=== PATIENT | male | born 1965 | race Caucasian/White ===

== ENCOUNTER → 2016-06-05 | Outpatient (CLI) | payer BC, MEDICARE ==
--- NOTE | 2016-06-05 16:04 | RAD ---
Thyroid sonography History: Hyperthyroidism. Findings: The longitudinal and AP and transverse dimensions of the right lobe are 5.1 cm and 1.9 cm and 1.8 cm respectively. The longitudinal and AP and transverse dimensions of the left lobe are 5.1 cm and 2.2 cm and 1.7 cm respectively. Both lobes are homogeneous without discrete mass or cyst. The isthmus is homogeneous measures 0.3 cm in thickness. IMPRESSION: Normal thyroid sonogram.
== END | disposition home or self-care (01) ==
LOC: US 12:52
PROVIDERS: ATTEND Family Medicine
DX: E05.90 Thyrotoxicosis, unspecified without thyrotoxic crisis or storm (principal)
CPT/HCPCS: 76536

== ENCOUNTER 2016-09-15 21:56 | Inpatient (IN) | payer BC, MEDICARE ==
[~2016-09-15] VITALS: Ht 180.3 cm; Wt 65.3 kg
[~2016-09-15 21:56] MED LIST: ALPR0.25 PO; ALPR1TAB2 PO; AMLO2.5T2 PO; GABA-586 PO; OMEP20CA9 PO; PANT40TA5 PO; VENL75CA PO; ZIPR40CA2 PO
[2016-09-15 22:48] LABS: BASO # 0.1 x10^3/uL (0.0-0.2); BASO % 1 % (0-3); EOS % 1 % (0-3); HEMATOCRIT 39.7 % (39.0-53.0); HEMOGLOBIN 13.7 g/dL (13.0-17.5); LYMPH # 2.8 x10^3/uL (1.0-4.8); LYMPH % 38 % (24-48); MEAN CORPUSCULAR HEMOGLOBIN 35 pg (25-35); MEAN CORPUSCULAR HGB CONC 34 g/dL (31-37); MEAN CORPUSCULAR VOLUME 101 fL (79-100); MONO % 11 % (0-9); NEUT % 51 % (31-73); PLATELET COUNT 208 x10^3/uL (140-400); RED BLOOD COUNT 3.94 x10^6/uL (4.30-5.70); WHITE BLOOD COUNT 7.4 x10^3/uL (4.0-11.0)
[2016-09-15 22:58] LABS: CALCIUM 9.3 mg/dL (8.5-10.1); CREATININE 0.6 mg/dL (0.7-1.3); GFR 140.9; POTASSIUM 3.8 mmol/L (3.5-5.1)
[2016-09-15 23:10] LABS: ALBUMIN 3.8 g/dL (3.4-5.0); ALBUMIN/GLOBULIN RATIO 1.2 (1.0-1.7); TOTAL BILIRUBIN 0.9 mg/dL (0.2-1.0)
[2016-09-15] MEDS ORDERED: ONDANSETRON PF 4 MG/2 ML VIAL. IV PRN (23:45)
[2016-09-15 23:52] LABS: BILIRUBIN,URINE NEGATIVE (NEG); GLUCOSE,URINE NEGATIVE (NEG); NITRITE,URINE NEGATIVE (NEG); PROTEIN,URINE NEGATIVE (NEG-TRACE); UROBILINOGEN,URINE 0.2 mg/dL (0.2 mg/dL)
[2016-09-15 23:56] LABS: BACTERIA,URINE 0 /HPF (0-FEW); RBC,URINE 0 /HPF (0-2); SQUAMOUS EPITHELIAL CELL,UR OCC /LPF; WBC,URINE 0 /HPF (0-4)
[2016-09-16] VITALS (7 sets, daily range): BP systolic 100–131; BP diastolic 61–88
[2016-09-16] MEDS ORDERED: IV NORMAL SALINE 1000ML BAG 1,000 ML IV ONE
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
[2016-09-16] MEDS ORDERED: ALPR0.25 PO (03:42)
[2016-09-16 04:33] LABS: CALCIUM 8.3 mg/dL (8.5-10.1); CREATININE 0.4 mg/dL (0.7-1.3); POTASSIUM 4.3 mmol/L (3.5-5.1)
--- NOTE | 2016-09-16 06:38 | EKG ---
[facility] [address] [place] [address] Test Date: 2016-09-15 Test Time: 22:32:20 Pat Name: KENISHA NICHOLS Department: Room: [facility] Gender: M [employer]: : 1965 Requested By: RYAN SHEEHAN Order Number: [id number] Reading MD: Papa Montero Measurements Intervals [place] Rate: 96 P: 90 VA: 136 QRS: 77 QRSD: 88 T: 58 QT: 328 QTc: 415 Interpretive Statements SINUS RHYTHM ATRIAL PREMATURE COMPLEX(ES) NO SPECIFIC ECG ABNORMALITIES RI6.01 No previous ECG available for comparison Electronically Signed On 09-18-2016 16:24:28 CDT by Papa Montero
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
[2016-09-16] MEDS ORDERED: NON FORMULARY ITEM (Omeprazole 1 CAP) PO SCH (09:00)
[2016-09-16] MEDS: PANTOPRAZOLE 40 MG TABLET.DR. PO SCH (09:53)
[2016-09-16] MEDS: VENLAFAXINE 50 MG TABLET. PO SCH ×3 (09:54→21:23)
[2016-09-16] MEDS: GABAPENTIN 300 MG CAPSULE. PO SCH ×3 (09:54→21:23)
[2016-09-16] MEDS: ZIPRASIDONE 20 MG CAPSULE PO SCH ×2 (09:54→21:23)
[2016-09-16] MEDS: NICOTINE 21MG PATCH. TD SCH (18:38)
[2016-09-16 20:36] LABS: BASO % 0 % (0-3); EOS % 1 % (0-3); HEMATOCRIT 39.7 % (39.0-53.0); HEMOGLOBIN 13.4 g/dL (13.0-17.5); LYMPH # 1.7 x10^3/uL (1.0-4.8); LYMPH % 30 % (24-48); MEAN CORPUSCULAR HEMOGLOBIN 34 pg (25-35); MEAN CORPUSCULAR HGB CONC 34 g/dL (31-37); MEAN CORPUSCULAR VOLUME 100 fL (79-100); MONO % 16 % (0-9); NEUT % 53 % (31-73); PLATELET COUNT 214 x10^3/uL (140-400); RED BLOOD COUNT 3.96 x10^6/uL (4.30-5.70); RED CELL DISTRIBUTION WIDTH 13.1 % (11.5-14.5); WHITE BLOOD COUNT 5.6 x10^3/uL (4.0-11.0)
[2016-09-16 20:56] LABS: ALBUMIN 3.5 g/dL (3.4-5.0); ALBUMIN/GLOBULIN RATIO 1.2 (1.0-1.7); CALCIUM 8.3 mg/dL (8.5-10.1); CREATININE 0.6 mg/dL (0.7-1.3); GFR 140.9; MAGNESIUM 2.2 mg/dL (1.8-2.4); TOTAL BILIRUBIN 0.4 mg/dL (0.2-1.0); TOTAL PROTEIN 6.5 g/dL (6.4-8.2)
[2016-09-16] MEDS: ALPRAZolam 0.25 MG TABLET PO SCH (21:24)
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
[2016-09-16 22:24] LABS: BILIRUBIN,URINE NEGATIVE (NEG); GLUCOSE,URINE NEGATIVE (NEG); NITRITE,URINE NEGATIVE (NEG); PH,URINE 7.5; PROTEIN,URINE NEGATIVE (NEG-TRACE); UROBILINOGEN,URINE 0.2 mg/dL (0.2 mg/dL)
[2016-09-16 22:31] LABS: BACTERIA,URINE 0 /HPF (0-FEW); RBC,URINE 0 /HPF (0-2); SQUAMOUS EPITHELIAL CELL,UR OCC /LPF; WBC,URINE 0 /HPF (0-4)
[2016-09-17] MEDS: ALPRAZolam 0.25 MG TABLET PO PRN ×2 (00:39→08:40)
[2016-09-17 03:53] VITALS: BP 120/78
[2016-09-17] MEDS ORDERED: SLEEP MED PO (04:30)
[2016-09-17] MEDS ORDERED: DIPH25CA58 PO (04:30)
[2016-09-17] MEDS ORDERED: ALPR1TAB2 PO (04:30)
[2016-09-17] MEDS ORDERED: RAME8TAB19 PO (04:30)
--- NOTE | 2016-09-17 05:57 | EKG ---
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
[2016-09-17 07:43] VITALS: BP 134/89
[2016-09-17] MEDS: VENLAFAXINE 50 MG TABLET. PO SCH ×3 (08:40→20:40)
[2016-09-17] MEDS: PANTOPRAZOLE 40 MG TABLET.DR. PO SCH (08:40)
[2016-09-17] MEDS: ZIPRASIDONE 20 MG CAPSULE PO SCH ×2 (08:40→20:40)
[2016-09-17] MEDS: NICOTINE 21MG PATCH. TD SCH (08:41)
[2016-09-17] MEDS: GABAPENTIN 300 MG CAPSULE. PO SCH ×3 (08:41→20:40)
[2016-09-17] MEDS ORDERED: ONDANSETRON PF 4 MG/2 ML VIAL. IV PRN (09:00)
[2016-09-17] MEDS ORDERED: ALPRAZolam 1 MG TABLET PO PRN (09:00)
[2016-09-17] MEDS ORDERED: LOPERAMIDE 2 MG CAPSULE PO PRN (09:00)
[2016-09-17] MEDS: AMINO AC 3%/ELECTROLYTE/GLYCER 1,000 ML IV SCH ×2 (10:37→22:38)
[2016-09-17 11:04] VITALS: BP 118/80
[2016-09-17] MEDS: ALPRAZolam 1 MG TABLET PO SCH ×4 (11:35→20:40)
[2016-09-17 15:10] VITALS: BP 121/66
[2016-09-17 16:16] LABS: HEP A IGM ABDY Negative (Negative); HEP A TOTAL ABDY Negative (Negative)
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
[2016-09-17 19:44] VITALS: BP 110/79
[2016-09-17] MEDS: ALPRAZolam 0.25 MG TABLET PO SCH (20:40)
[2016-09-17 23:24] VITALS: BP 120/82
[2016-09-18 03:37] VITALS: BP 110/79
[2016-09-18 07:55] VITALS: BP 131/82
[2016-09-18] MEDS: NICOTINE 21MG PATCH. TD SCH (08:23)
[2016-09-18] MEDS: VENLAFAXINE 50 MG TABLET. PO SCH ×2 (08:23→13:36)
[2016-09-18] MEDS: PANTOPRAZOLE 40 MG TABLET.DR. PO SCH (08:24)
[2016-09-18] MEDS: GABAPENTIN 300 MG CAPSULE. PO SCH ×2 (08:24→13:36)
[2016-09-18] MEDS: ZIPRASIDONE 20 MG CAPSULE PO SCH (08:24)
[2016-09-18] MEDS: ALPRAZolam 1 MG TABLET PO SCH ×2 (08:24→11:54)
[2016-09-18 10:58] VITALS: BP 109/75
[2016-09-18] MEDS: AMINO AC 3%/ELECTROLYTE/GLYCER 1,000 ML IV SCH (13:36)
[2016-09-18 14:50] VITALS: BP 96/65
[2016-09-18] MEDS ORDERED: LOPE2CAP PO (15:11)
[2016-09-18] MEDS ORDERED: Nicotine 21MG TD (15:11)
[2016-09-18] MEDS ORDERED: VENL150C6 PO (15:11)
--- NOTE | 2016-09-18 15:19 | PDOC ---
Provider Note Provider Note discharge dictated # [id number] Jt SHEEHAN MD Sep 18, 2016 15:19
--- NOTE | 2016-09-18 15:23 | PDOC3 ---
Discharge Summary [facility] Date of Admission: Sep 08, 2016 Discharge Date: Sep 09, 2016 Admitting Diagnosis hyponatremia Problems: Final Diagnosis Problems Medical Problems: (1) Psychogenic polydipsia Status: Acute Brief Hospital Course Mr. Alberto is a 51 old who presented with weakness from water drinking induced hyponatremia from underlying anorexia which was corrected with IV fluids and outpatient treatment for [id number] is arranged Problems: CONDITION AT DISCHARGE: Improved, Stable Diet regular Scheduled Alprazolam (Xanax), 3 TAB PO HS, (Reported) Gabapentin (Neurontin), 900 MG PO TID, (Reported) Omeprazole (Omeprazole), 1 CAP PO DAILY, (Reported) Pantoprazole Sodium (Pantoprazole Sodium), 40 MG PO DAILYAC Venlafaxine Hcl (Effexor Xr), 1 CAP PO DAILY, (Reported) Ziprasidone Hcl (Geodon), 1 CAP PO BID, (Reported) Scheduled PRN Alprazolam (Xanax), 0.25 MG PO PRN Q6HRS PRN for ANXIETY / AGITATION, (Reported) Diphenhydramine Hcl (Benadryl), 2 CAP PO PRN QHS PRN for INSOMNIA, (Reported) Ramelteon (Rozerem), 8 MG PO PRN QHS PRN for INSOMNIA, (Reported) [OTC sleep med], PO PRN QHS PRN for INSOMNIA, (Reported) Jt SHEEHAN MD Sep 18, 2016 15:23
[2016-09-18] MEDS ORDERED: ALPR0.25 PO (15:57)
[2016-09-18] MEDS ORDERED: ALPR1TAB2 PO (15:57)
[2016-09-18] MEDS ORDERED: TUBERCULIN PPD 5TUB.UNIT 0.1 ML TEST. ID ONE (16:00)
[2016-09-18] MEDS ORDERED: ALPR0.254 PO (16:02)
[2016-09-18] MEDS ORDERED: ALPR1TAB6 PO (16:02)
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
== END 2016-09-18 16:31 | disposition home or self-care (01) | DRG 883 ==
LOC: ER 21:56 → 6 SOUTH 23:44
PROVIDERS: ADMIT Family Medicine; ATTEND Family Medicine
DX: F50.00 Anorexia nervosa, unspecified (principal); E87.1 Hypo-osmolality and hyponatremia; E78.5 Hyperlipidemia, unspecified; F31.9 Bipolar disorder, unspecified; F41.9 Anxiety disorder, unspecified; F42.9 Obsessive-compulsive disorder, unspecified; J44.9 Chronic obstructive pulmonary disease, unspecified; K21.9 Gastro-esophageal reflux disease without esophagitis; G47.00 Insomnia, unspecified; F41.0 Panic disorder [episodic paroxysmal anxiety]; R07.89 Other chest pain; L89.159 Pressure ulcer of sacral region, unspecified stage; E73.9 Lactose intolerance, unspecified; E07.9 Disorder of thyroid, unspecified; G56.03 Carpal tunnel syndrome, bilateral upper limbs; K22.70 Barrett's esophagus without dysplasia; Z87.01 Personal history of pneumonia (recurrent); Z87.891 Personal history of nicotine dependence; Z79.899 Other long term (current) drug therapy; Z88.8 Allergy status to other drugs, medicaments and biological substances; Z88.6 Allergy status to analgesic agent
CPT/HCPCS: 36415; 80048; 80053; 80074; 81001; 82150; 83735; 84100; 84484; 85027; 86708; 93005; 96360; J2060; J2405; J7030; 99285-25

== ENCOUNTER 2016-09-22 07:28 | Emergency (ER) | payer BC, MEDICARE | END 2016-09-22 12:42 | disposition home or self-care (01) | LOC: ER 07:28 | DX: R53.1 Weakness (principal); Z53.21 Procedure and treatment not carried out due to patient leaving prior to being seen by health care provider ==

== ENCOUNTER 2016-09-22 08:38 | Emergency (ER) | payer BC, MEDICARE ==
[~2016-09-22] VITALS: Ht 180.3 cm; Wt 60.3 kg
[2016-09-22] MEDS ORDERED: IV NORMAL SALINE 1000ML BAG 1,000 ML IV SCH (09:39)
[2016-09-22 09:48] LABS: BASO % 1 % (0-3); EOS % 1 % (0-3); HEMATOCRIT 41.2 % (39.0-53.0); HEMOGLOBIN 13.9 g/dL (13.0-17.5); LYMPH # 1.4 x10^3/uL (1.0-4.8); LYMPH % 29 % (24-48); MEAN CORPUSCULAR HEMOGLOBIN 34 pg (25-35); MEAN CORPUSCULAR HGB CONC 34 g/dL (31-37); MEAN CORPUSCULAR VOLUME 101 fL (79-100); MONO % 15 % (0-9); NEUT % 55 % (31-73); PLATELET COUNT 224 x10^3/uL (140-400); RED BLOOD COUNT 4.08 x10^6/uL (4.30-5.70); RED CELL DISTRIBUTION WIDTH 13.1 % (11.5-14.5); WHITE BLOOD COUNT 4.7 x10^3/uL (4.0-11.0)
[2016-09-22] MEDS ORDERED: IV NORMAL SALINE 1000ML BAG 1,000 ML IV ONE (11:45)
[2016-09-22] MEDS ORDERED: GABAPENTIN 300 MG CAPSULE. PO ONE (11:45)
[2016-09-22 11:49] VITALS: BP 123/84
--- NOTE | 2016-09-22 12:10 | PHYS DOC ---
Past Medical History Past Medical History: Anxiety, Bipolar, GERD, Other Additional Past Medical Histor: insomnia, anorexia Past Surgical History: Other Additional Past Surgical Histo: bilateral hand and left elbow surgery Alcohol Use: None Drug Use: None Adult General Chief Complaint Chief Complaint: WEAKNESS/GENERALIZED HPI HPI Patient is a 51 year old male brought to the ED by his mother and his with the history of significant weakness and near-syncope. She was recently hospitalized for hyponatremia which was treated. Patient actually came to the hospital today as an outpatient to get follow-up labs drawn. Patient repeatedly emphasized to me that it's very important that he be able to keep an appointment on Friday at 9 AM in [place] at a facility where he plans to go for treatment of his anorexia. Patient states "I've got to get to [place] tomorrow or I'll ". When he got up this morning his weakness was minimal, he grades it a 1 on a scale of 0-10. He ambulated to the car but then had to have a wheelchair to get into the hospital. There was some confusion initially about whether he was here to be checked into the ED but in fact he was here for outpatient labs and ended up going to get those drawn. He came back to the ED with the complaint of weakness and was placed in an exam room. At the time I saw him, he is complaining of severe weakness. He has been this week before, when he was admitted to the hospital for hyponatremia. He said that he had good days and bad days while in the hospital but when he was discharged from the hospital was much better. Today, his weakness is generalized. He has no complaints of pain. He has not changed any medications. He does believe he is dehydrated. PCP Dr. Sheehan Review of Systems Review of Systems Constitutional: Denies fever or chills [] Eyes: Denies change in visual acuity, redness, or eye pain [] HENT: Denies nasal congestion or sore throat [] Respiratory: Denies cough or shortness of breath [] Cardiovascular: Denies chest pain GI: Denies abdominal pain, nausea, vomiting, bloody stools or diarrhea [] : Denies dysuria or hematuria [] Musculoskeletal: Denies back pain or joint pain [] Integument: Denies rash or skin lesions [] Neurologic: Denies headache, focal weakness or sensory changes [] Endocrine: Denies polyuria or polydipsia [] Current Medications Current Medications Current Medications Medications (Trade) Dose Ordered Sig/Erik Start Time Stop Time Status Last Admin Dose Admin Gabapentin (Neurontin) 900 mg 1X ONCE 09/22/16 11:45 09/22/16 11:46 DC 09/22/16 11:52 900 MG Sodium Chloride 1,000 ml @ 1,000 mls/hr 1X ONCE 09/22/16 11:45 09/22/16 12:43 DC 09/22/16 11:56 1,000 MLS/HR Allergies Allergies Allergies Coded Allergies Type Severity Reaction Last Updated Verified benzocaine Allergy Severe "shuts of my breathing" 09/09/16 Yes butamben Allergy Severe "shuts of my breathing" 09/09/16 Yes tetracaine Allergy Severe "shuts of my breathing" 09/09/16 Yes acetaminophen Adverse Reaction Intermediate nausea and vomiting 09/09/16 Yes oxycodone Adverse Reaction Intermediate nausea and vomiting 09/09/16 Yes propoxyphene Adverse Reaction Intermediate nausea and vomiting 09/09/16 Yes Physical Exam Physical Exam Constitutional: Thin/cachectic male who is alert and appears to be mentating normally but appears very weak, speaks somewhat haltingly in a week voice, does appear to be dehydrated HENT: Normocephalic, atraumatic, bilateral external ears normal, nose normal. Oral mucous membranes dry. Eyes: conjunctiva normal, no discharge. [] Neck: Normal range of motion, no stridor. [] Cardiovascular:Heart rate regular rhythm, no murmur , nontachycardic Lungs & Thorax: Bilateral breath sounds clear to auscultation [] Abdomen: Bowel sounds normal, soft, no tenderness, no masses, no pulsatile masses. [] Skin: Warm, dry, no erythema, no rash. [] Extremities: No tenderness, no cyanosis, no clubbing, ROM intact, no edema. [] Neurologic: Alert and oriented X 3, generalized weakness, normal sensory function, no focal deficits noted. Pipe Covering Molder are equal and about 3 over 5 bilaterally. Dorsiflexion of the great toes equal and 3-4 over 5 bilaterally. Current Patient Data Vital Signs Vital Signs Date Time Temp Pulse Resp B/P (MAP) Pulse Ox O2 Delivery O2 Flow Rate FiO2 09/22/16 11:49 78 123/84 (97) 100 Room Air 09/22/16 09:19 21 09/22/16 08:48 97.5 97.5 Lab Values Laboratory Tests Test 09/22/16 09:10 White Blood Count 4.7 x10^3/uL (4.0-11.0) Red Blood Count 4.08 x10^6/uL (4.30-5.70) L Hemoglobin 13.9 g/dL (13.0-17.5) Hematocrit 41.2 % (39.0-53.0) Mean Corpuscular Volume 101 fL (79-100) H Mean Corpuscular Hemoglobin 34 pg (25-35) Mean Corpuscular Hemoglobin Concent 34 g/dL (31-37) Red Cell Distribution Width 13.1 % (11.5-14.5) Platelet Count 224 x10^3/uL (140-400) Neutrophils (%) (Auto) 55 % (31-73) Lymphocytes (%) (Auto) 29 % (24-48) Monocytes (%) (Auto) 15 % (0-9) H Eosinophils (%) (Auto) 1 % (0-3) Basophils (%) (Auto) 1 % (0-3) Neutrophils # (Auto) 2.6 x10^3uL (1.8-7.7) Lymphocytes # (Auto) 1.4 x10^3/uL (1.0-4.8) Monocytes # (Auto) 0.7 x10^3/uL (0.0-1.1) Eosinophils # (Auto) 0.0 x10^3/uL (0.0-0.7) Basophils # (Auto) 0.0 x10^3/uL (0.0-0.2) Laboratory Tests 09/22/16 09:10 EKG EKG [] Radiology/Procedures Radiology/Procedures [] Course & Med Decision Making Course & Med Decision Making Pertinent Labs and Imaging studies reviewed. (See chart for details) 51-year-old male with a recent hospitalization for hyponatremia presents with generalized weakness which seems to have onset after he got up this morning. He came in for outpatient labs but ended up in the ED due to generalized weakness. He does appear to be dehydrated with dry mucous membranes. Vital signs are stable. I discussed with the patient and his family that we will give him some IV fluids and check some labs. They're agreeable to that plan. Outpatient chemistry labs had already been ordered and returned with sodium 138 , potassium 4.0. CBC normal. The patient had 1 L IV normal saline. Recheck patient, he is much less weak. He feels much better. Patient's mother and other family members are reluctant to take him home but the patient adamantly doesn't want to go home. We agreed on a second liter of IV fluids and then recheck. Patient had a second liter of IV normal saline. He felt better and passed a trial of ambulation in the emergency Department with ED nursing staff. I did offer the patient admission for weakness but he adamantly declined. He does plan to travel to [place] tomorrow to be ready for a evaluation at a facility for anorexia, which is a chronic problem for him. There is no medical reason that the patient has to be admitted today. His generalized, nonfocal weakness, is much better after IV fluids. Family members are in agreement with the patient's discharge. See instructions for plan. [] Dragon Disclaimer Dragon Disclaimer This electronic medical record was generated, in whole or in part, using a voice recognition dictation system. Departure Departure Impression: Primary Impression: Generalized weakness Additional Impression: Dehydration Disposition: 01 HOME, SELF-CARE Condition: IMPROVED Referrals: Jt SHEEHAN MD (PCP) Patient Instructions: Dehydration, Adult, [id number] Additional Instructions: Drink plenty of fluids to avoid dehydration. Follow-up as planned. Return to ED if worse. Problem Qualifiers ANA MARIA WILSON MD Sep 22, 2016 12:10
== END 2016-09-22 12:43 | disposition home or self-care (01) ==
LOC: ER 08:38
DX: R53.1 Weakness (principal); E86.0 Dehydration; R55 Syncope and collapse; F41.9 Anxiety disorder, unspecified; K21.9 Gastro-esophageal reflux disease without esophagitis; F31.9 Bipolar disorder, unspecified; G47.00 Insomnia, unspecified; Z88.4 Allergy status to anesthetic agent; Z88.8 Allergy status to other drugs, medicaments and biological substances; Z88.5 Allergy status to narcotic agent
CPT/HCPCS: 36415; 85027; 96360; 99284; J7030

== ENCOUNTER → 2016-09-22 | Outpatient (CLI) | payer BC, MEDICARE ==
[2016-09-18 14:50] VITALS: BP 96/65
[~2016-09-22] MED LIST changes: +ALPR0.254 PO; +ALPR1TAB6 PO; +DIPH25CA58 PO; +LOPE2CAP PO; +Nicotine 21MG TD; +RAME8TAB19 PO; +SLEEP MED PO; +VENL150C6 PO
[2016-09-22 08:22] LABS: CALCIUM 9.1 mg/dL (8.5-10.1); CREATININE 0.7 mg/dL (0.7-1.3)
== END | disposition home or self-care (01) ==
LOC: LAB 07:38
PROVIDERS: ATTEND Family Medicine
DX: R63.4 Abnormal weight loss (principal)
CPT/HCPCS: 36415; 80048

== ENCOUNTER 2019-08-02 18:17 | Inpatient (IN) | payer BC, MEDICARE ==
[~2019-08-02] VITALS: Ht 180.3 cm; Wt 82.6 kg
[~2019-08-02 18:17] MED LIST changes: -GABA-586 PO; +GABA300C18 PO; +OMEP20CA16 PO; -OMEP20CA9 PO; -PANT40TA5 PO; +PANT40TA77 PO
[2019-08-02] MEDS ORDERED: IV NORMAL SALINE 1000ML BAG 1,000 ML IV SCH (18:36)
[2019-08-02 18:45] LABS: BASO # 0.1 x10^3/uL (0.0-0.2); BASO % 1 % (0-3); EOS # 0.2 x10^3/uL (0.0-0.7); EOS % 2 % (0-3); HEMATOCRIT 38.8 % (39.0-53.0); LYMPH # 2.7 x10^3/uL (1.0-4.8); LYMPH % 33 % (24-48); MEAN CORPUSCULAR HEMOGLOBIN 36 pg (25-35); MEAN CORPUSCULAR HGB CONC 36 g/dL (31-37); MEAN CORPUSCULAR VOLUME 98 fL (79-100); MONO # 1.1 x10^3/uL (0.0-1.1); MONO % 13 % (0-9); NEUT # 4.4 x10^3/uL (1.8-7.7); NEUT % 52 % (31-73); PLATELET COUNT 227 x10^3/uL (140-400); RED BLOOD COUNT 3.95 x10^6/uL (4.30-5.70); RED CELL DISTRIBUTION WIDTH 12.5 % (11.5-14.5); WHITE BLOOD COUNT 8.4 x10^3/uL (4.0-11.0)
--- NOTE | 2019-08-02 18:56 | PHYS DOC ---
Past Medical History Past Medical History: Anxiety, Bipolar, Endometriosis, GERD, Other Additional Past Medical Histor: insomnia, anorexia Past Surgical History: Other Additional Past Surgical Histo: bilateral hand and left elbow surgery Smoking Status: Current Every Day Smoker Alcohol Use: None Drug Use: None General Adult EDM: Chief Complaint: UPPER EXTREMITY PAIN HPI: HPI: Patient is a 54 year old male who presents with complaint of left arm numbness with [id number] sensation that started yesterday. He states that yesterday it was just in 2 of his fingers but today since this morning he has noticed that it is in his entire hand and up his arm. He also states that since he has been here, he has noticed numbness developing in the left leg. Patient denies any speech deficits. He denies headache. [] Review of Systems: Review of Systems: Constitutional: Denies fever or chills. [] Respiratory: Denies cough or shortness of breath. [] Cardiovascular: Denies chest pain or edema. [] GI: Denies abdominal pain, nausea, vomiting or diarrhea. [] Integument: Denies rash. [] Neurologic: Complains of left arm numbness and tingling. [] A full 10 point review of systems has been reviewed and is otherwise negative. Heart Score: Risk Factors: Risk Factors: DM, Current or recent (<one month) smoker, HTN, HLP, family history of CAD, obesity. Risk Scores: Score 0 - 3: 2.5% MACE over next 6 weeks - Discharge Home Score 4 - 6: 20.3% MACE over next 6 weeks - Admit for Clinical Observation Score 7 - 10: 72.7% MACE over next 6 weeks - Early Invasive Strategies Current Medications: Current Medications Medications (Trade) Dose Ordered Sig/[facility] Start Time Stop Time Status Last Admin Dose Admin Sodium Chloride 1,000 ml @ 1,000 mls/hr Q1H 08/02/19 18:36 08/02/19 19:35 Allergies: Allergies: Allergies Coded Allergies Type Severity Reaction Last Updated Verified benzocaine Allergy Severe "shuts of my breathing" 09/09/16 Yes butamben Allergy Severe "shuts of my breathing" 09/09/16 Yes tetracaine Allergy Severe "shuts of my breathing" 09/09/16 Yes acetaminophen Adverse Reaction Intermediate nausea and vomiting 09/09/16 Yes oxycodone Adverse Reaction Intermediate nausea and vomiting 09/09/16 Yes propoxyphene Adverse Reaction Intermediate nausea and vomiting 09/09/16 Yes Physical Exam: PE: Constitutional: Well developed, well nourished, no acute distress, non-toxic appearance. [] HENT: Normocephalic, atraumatic, bilateral external ears normal, oropharynx moist, no oral exudates, nose normal. [] Eyes: PERRLA, EOMI, conjunctiva normal, no discharge. [] Neck: Normal range of motion, no tenderness, supple, no stridor. [] Cardiovascular: Regular rate and rhythm [] Lungs & Thorax: Bilateral breath sounds clear to auscultation [] Abdomen: Bowel sounds normal, soft, no tenderness. [] Skin: Warm, dry, no erythema, no rash. [] Extremities: No tenderness, no cyanosis, no clubbing, ROM intact. [] Neurologic: Alert and oriented X 3, with decreased motor strength as well as loss of sensation to left upper extremity. Left lower extremity demonstrates loss of fine touch. [] EKG: EKG: [] Radiology/Procedures: Radiology/Procedures: [] Course & Med Decision Making: Course & Med Decision Making Pertinent Labs and Imaging studies reviewed. (See chart for details) [] Dragon Disclaimer: Dragon Disclaimer: This electronic medical record was generated, in whole or in part, using a voice recognition dictation system. Departure Departure Impression: Primary Impression: Left-sided weakness Disposition: ADMITTED INPATIENT Admitting Physician: KAI Condition: GOOD Referrals: Jt SHEEHAN MD (PCP) Justicifation of Admission Dx: Justifications for Admission: Justification of Admission Dx: Yes (left sided weakness) SURESH FORD Jr. DO Aug 02, 2019 18:56
[2019-08-02 18:57] LABS: CALCIUM 8.5 mg/dL (8.5-10.1); CREATININE 0.9 mg/dL (0.7-1.3); GFR 87.3; POTASSIUM 3.9 mmol/L (3.5-5.1)
[2019-08-02 19:03] LABS: ALBUMIN 3.3 g/dL (3.4-5.0); MAGNESIUM 1.7 mg/dL (1.8-2.4); TOTAL BILIRUBIN 0.3 mg/dL (0.2-1.0); TOTAL PROTEIN 6.5 g/dL (6.4-8.2)
--- NOTE | 2019-08-02 19:13 | RAD ---
Exam: CT head INDICATION: Left-sided weakness, numbness TECHNIQUE: Sequential axial images through the head were obtained without the administration of IV contrast. Comparisons: None FINDINGS: No focal parenchymal lesion or hemorrhage is identified. There is no midline shift or sulcal effacement. No acute vascular territory infarction is identified. Riojas-white distinction is preserved. The ventricular system is within normal limits without compression hydrocephalus. The basal cisterns are well maintained. The visualized portions of the paranasal sinuses and mastoid air cells are well-pneumatized. No acute fractures. IMPRESSION: No acute intracranial abnormality. Exposure: One or more of the following in the visualized dose reduction techniques were utilized for this examination: 1. Automated exposure control 2. Adjustment of the MA and/or KV according to patient size Use of iterative of reconstructive technique Electronically signed by: Chandrakant Nelson MD (08/02/2019 7:10 PM) [id number]
[2019-08-02 19:19] LABS: BILIRUBIN,URINE NEGATIVE (NEG); CLARITY,URINE CLOUDY; COLOR,URINE YELLOW; NITRITE,URINE NEGATIVE (NEG); PH,URINE 6.5 (<5.0-8.0); PROTEIN,URINE NEGATIVE (NEG-TRACE); UROBILINOGEN,URINE 0.2 mg/dL (0.2 mg/dL)
[2019-08-02 19:34] LABS: BACTERIA,URINE MODERATE /HPF (0-FEW); WBC,URINE TNTC /HPF (0-4)
[2019-08-02] MEDS ORDERED: IOHEXOL 300 MG/ML 100ML VIAL. IV ONE (20:00)
[2019-08-02] MEDS ORDERED: CONTRAST GIVEN. MC PRN (20:00)
--- NOTE | 2019-08-02 20:30 | RAD ---
Exam: CTA head and neck INDICATION: Left-sided weakness, numbness TECHNIQUE: Sequential axial images through the head and neck obtained following the administration of 75 mL of Isovue-370 IV contrast. Sagittal and coronal reformatted images were reconstructed from the axial data and reviewed. 3-D reformatted images were reconstructed from the axial data and reviewed. Comparisons: CT head without contrast same day FINDINGS: CTA neck: Visualized portions of the thoracic aorta are unremarkable. Right common carotid artery is patent without evidence of stenosis, occlusion or aneurysm. Mild calcified plaque at the origin of the right internal carotid artery without significant stenosis. Left common carotid artery is patent without evidence of stenosis, occlusion or aneurysm. Mild calcified plaque at the origin of the left internal carotid artery without significant stenosis. Right vertebral artery is patent to the basilar confluence without evidence of stenosis, occlusion or aneurysm. Left vertebral artery is patent to the basilar confluence without evidence of stenosis, occlusion or aneurysm. CTA HEAD: Mild calcified plaque at the cavernous segment of the right internal carotid artery. Right MCA is patent. Right DORI is patent. Mild calcified plaque at the cavernous segment of the left internal carotid artery. Left MCA is patent. Left DORI is patent. Basilar artery is patent without evidence of stenosis, occlusion or aneurysm. quill reamer are patent. IMPRESSION: 1. No large vessel occlusion. 2. Mild calcified plaque at the cavernous segment of the internal carotid arteries bilaterally, without evidence of significant stenosis. 3. Mild calcified plaque at the origin of the internal carotid arteries bilaterally without significant stenosis. Exposure: One or more of the following in the visualized dose reduction techniques were utilized for this examination: 1. Automated exposure control 2. Adjustment of the MA and/or KV according to patient size 3. Use of iterative of reconstructive technique Electronically signed by: Chandrakant Nelson MD (08/02/2019 8:27 PM) [id number]
[2019-08-02] MEDS ORDERED: POLY119P4 PO (21:03)
[2019-08-02] MEDS ORDERED: BREO ELLIPTA 21 EACH IH (21:03)
[2019-08-02] MEDS ORDERED: OLAN15TA3 PO (21:08)
[2019-08-02] MEDS ORDERED: ALBU2.5V8 IH (21:08)
[2019-08-02] MEDS ORDERED: PROP40TA PO (21:08)
[2019-08-02] MEDS ORDERED: ASPIRIN 325 MG TABLET PO ONE (21:15)
--- NOTE | 2019-08-02 21:43 | PDOC1 ---
History and Physical Date of Admission Date of Admission DATE: 08/02/19 TIME: 21:35 Source Source: Chart review, Patient History of Present Illness History of Present Illness Mr. Alberto, is a 54 year old male who presents with complaint of left arm numbness with [id number] sensation that started yesterday. He states that yesterday it was just in 2 of his fingers but today since this morning he has noticed that it is in his entire hand and up his arm. He also states that since he has been here, he has noticed numbness developing in the left leg. Patient denies any speech deficits. He denies headache. [] Past Medical History Cardiovascular: HTN Pulmonary: No pertinent hx CENTRAL NERVOUS SYSTEM: Other GI: GERD Psych: Anxiety, Bipolar, Panic, Other Rheumatologic: No pertinent hx Infectious disease: No pertinent hx Renal/: No pertinent hx Endocrine: No pertinent hx Past Surgical History Past Surgical History: Other Family History Family History: No Significant Social History Smoke: No ALCOHOL: rare Drugs: None Current Problem List Problem List Problems Medical Problems: (1) Left-sided weakness Status: Acute Current Medications Current Medications Current Medications Sodium Chloride 1,000 ml @ 1,000 mls/hr Q1H IV Last administered on 08/02/19at 19:08; Start 08/02/19 at 18:36; Stop 08/02/19 at 19:35; Status DC Iohexol (Omnipaque 300 Mg/ml) 75 ml 1X ONCE IV Last administered on 08/02/19at 20:19; Start 08/02/19 at 20:00; Stop 08/02/19 at 20:01; Status DC Info (CONTRAST GIVEN -- Rx MONITORING) 1 each PRN DAILY PRN MC SEE COMMENTS; Start 08/02/19 at 20:00; Stop 08/04/19 at 19:59 Aspirin (Collins Aspirin) 325 mg 1X ONCE PO Last administered on 08/02/19at 21:11; Start 08/02/19 at 21:15; Stop 08/02/19 at 21:16; Status DC Active Scripts Active Alprazolam 0.25 Mg Tablet 0.75 Mg PO HS 30 Days Alprazolam 1 Mg Tablet 1 Mg PO TIDACHC 30 Days Loperamide (Loperamide Hcl) 2 Mg Capsule 2 Mg PO PRN Q15MIN PRN [Nicotine 21MG] 1 PATCH Patch 1 Patch TD DAILY Venlafaxine Hcl Er (Venlafaxine Hcl) 150 Mg Cap.er.24h 1 Cap PO DAILY Reported Zyprexa (Olanzapine) 15 Mg Tablet 15 Mg PO DAILY Propranolol Hcl 40 Mg Tablet 1 Tab PO BID Proair Hfa Inhaler (Albuterol Sulfate) 8.5 Gm Hfa.aer.ad 2 Puff IH PRN Q4-6HRS PRN 21 Days Miralax (Polyethylene Glycol 3350) 119 Gm Powder 17 Gm PO DAILY PRN dissolve in water Breo Ellipta 200-25 Mcg INH (Fluticasone/Vilanterol) 1 Each Blst.w.dev 1 Puff IH DAILY Xanax (Alprazolam) 1 Mg Tablet 3 Tab PO HS Xanax (Alprazolam) 0.25 Mg Tablet 0.25 Mg PO PRN Q6HRS PRN [OTC sleep med] PO PRN QHS PRN Benadryl (Diphenhydramine Hcl) 25 Mg Capsule 2 Cap PO PRN QHS PRN Rozerem (Ramelteon) 8 Mg Tablet 8 Mg PO PRN QHS PRN Omeprazole 20 Mg Capsule.dr 1 Cap PO DAILY Neurontin (Gabapentin) 300 Mg Capsule 900 Mg PO TID Geodon (Ziprasidone Hcl) 40 Mg Capsule 1 Cap PO BID Allergies Allergies: Coded Allergies: benzocaine (Verified Allergy, Severe, "shuts of my breathing", 09/09/16) butamben (Verified Allergy, Severe, "shuts of my breathing", 09/09/16) tetracaine (Verified Allergy, Severe, "shuts of my breathing", 09/09/16) acetaminophen (Verified Adverse Reaction, Intermediate, nausea and vomiting, 09/09/16) oxycodone (Verified Adverse Reaction, Intermediate, nausea and vomiting, 09/09/16) propoxyphene (Verified Adverse Reaction, Intermediate, nausea and vomiting, 09/09/16) ROS General: No: Chills, Night Sweats, Fatigue, Malaise, Appetite, Other PSYCHOLOGICAL ROS: No: Anxiety, Behavioral Disorder, Concentration difficultie, Decreased libido, Depression, Disorientation, Hallucinations, Hostility, Irritablity, Memory difficulties, Mood Swings, Obsessive thoughts, Physical abuse, Sexual abuse, Sleep disturbances, Suicidal ideation, Other HEENT: No: Heacaches, Visual Changes, Hearing change, Nasal congestion, Nasal discharge, Oral lesions, Sinus pain, Sore Throat, Epistaxis, Sneezing, Snoring, Tinnitus, Vertigo, Vocal changes, Other Respiratory: No: Cough, Hemoptysis, Orthopnea, Pleuritic Pain, Shortness of breath, SOB with excertion, Sputum Changes, Stridor, Tachypnea, Wheezing, Other Cardiovascular: No Chest Pain, No Palpitations, No Orthopnea, No Paroxysmal Noc. Dyspnea, No Edema, No Lt Headedness, No Other Gastrointestinal: No Nausea, No Vomiting, No Abdominal Pain, No Diarrhea, No Constipation, No Melena, No Hematochezia, No Other Genitourinary: No Dysuria, No Frequency, No Incontinence, No Hematuria, No Retention, No Discharge, No Urgency, No Pain, No Flank Pain, No Other, No , No , No , No , No , No , No Musculoskeletal: No Gait Disturbance, No Joint Pain, No Joint Stiffness, No Joint Swelling, No Muscle Pain, No Muscular Weakness, No Pain In:, No Swelling In:, No Other Neurological: No Behavorial Changes, No Bowel/Bladder ControlChng, No Confusion, No Dizziness, No Gait Disturbance, No Headaches, No Impaired Coor d/balance, No Memory Loss, No Numbness/Tingling, No Seizures, No Speech Problems, No Tremors, No Visual Changes, No Weakness, No Other Skin: Yes Dry Skin; No Eczema, No Hair Changes, No Lumps, No Mole Changes, No Mottling, No Nail Changes, No Pruritus, No Rash, No Skin Lesion Changes, No Other, No Acne Physical Exam General: Alert, Cooperative HEENT: Atraumatic, PERRLA Lungs: Clear to auscultation Abdomen: Normal bowel sounds, Soft Extremities: No clubbing, No cyanosis, Normal pulses Skin: No rashes, No significant lesion Neuro: Normal gait, Normal speech (for him, it is slow speech and sluggish transitions), Sensation intact, Other (left arm wekaness, some poor tone, painful to palpation) Psych/Mental Status: Mood NL Vitals Vitals Vital Signs Date Time Temp Pulse Resp B/P (MAP) Pulse Ox O2 Delivery O2 Flow Rate FiO2 08/02/19 21:12 53 18 145/73 (97) 99 Room Air 08/02/19 18:17 98.1 98.1 Labs Labs Laboratory Tests Test 08/02/19 18:30 08/02/19 19:07 White Blood Count 8.4 x10^3/uL (4.0-11.0) Red Blood Count 3.95 x10^6/uL (4.30-5.70) Hemoglobin 14.0 g/dL (13.0-17.5) Hematocrit 38.8 % (39.0-53.0) Mean Corpuscular Volume 98 fL (79-100) Mean Corpuscular Hemoglobin 36 pg (25-35) Mean Corpuscular Hemoglobin Concent 36 g/dL (31-37) Red Cell Distribution Width 12.5 % (11.5-14.5) Platelet Count 227 x10^3/uL (140-400) Neutrophils (%) (Auto) 52 % (31-73) Lymphocytes (%) (Auto) 33 % (24-48) Monocytes (%) (Auto) 13 % (0-9) Eosinophils (%) (Auto) 2 % (0-3) Basophils (%) (Auto) 1 % (0-3) Neutrophils # (Auto) 4.4 x10^3/uL (1.8-7.7) Lymphocytes # (Auto) 2.7 x10^3/uL (1.0-4.8) Monocytes # (Auto) 1.1 x10^3/uL (0.0-1.1) Eosinophils # (Auto) 0.2 x10^3/uL (0.0-0.7) Basophils # (Auto) 0.1 x10^3/uL (0.0-0.2) Prothrombin Time 13.0 SEC (11.7-14.0) Prothromb Time International Ratio 1.0 (0.8-1.1) Activated Partial Thromboplast Time 31 SEC (24-38) Sodium Level 129 mmol/L (136-145) Potassium Level 3.9 mmol/L (3.5-5.1) Chloride Level 93 mmol/L (98-107) Carbon Dioxide Level 28 mmol/L (21-32) Anion Gap 8 (6-14) Blood Urea Nitrogen 7 mg/dL (8-26) Creatinine 0.9 mg/dL (0.7-1.3) Estimated GFR (Cockcroft-Gault) 87.3 BUN/Creatinine Ratio 8 (6-20) Glucose Level 103 mg/dL (70-99) Calcium Level 8.5 mg/dL (8.5-10.1) Magnesium Level 1.7 mg/dL (1.8-2.4) Total Bilirubin 0.3 mg/dL (0.2-1.0) Aspartate Amino Transf (AST/SGOT) 26 U/L (15-37) Alanine Aminotransferase (ALT/SGPT) 26 U/L (16-63) Alkaline Phosphatase 71 U/L (46-116) Troponin I Quantitative < 0.017 ng/mL (0.000-0.055) Total Protein 6.5 g/dL (6.4-8.2) Albumin 3.3 g/dL (3.4-5.0) Albumin/Globulin Ratio 1.0 (1.0-1.7) Thyroid Stimulating Hormone (TSH) 0.354 uIU/mL (0.358-3.74) Urine Collection Type Unknown Urine Color Yellow Urine Clarity Cloudy Urine pH 6.5 (<5.0-8.0) Urine Specific [place] <=1.005 (1.000-1.030) Urine Protein Negative mg/dL (NEG-TRACE) Urine Glucose (UA) Negative mg/dL (NEG) Urine Ketones (Stick) Negative mg/dL (NEG) Urine Blood Negative (NEG) Urine Nitrite Negative (NEG) Urine Bilirubin Negative (NEG) Urine Urobilinogen Dipstick 0.2 mg/dL (0.2 mg/dL) Urine Leukocyte Esterase Large (NEG) Urine RBC 11-20 /HPF (0-2) Urine WBC Tntc /HPF (0-4) Urine Bacteria Moderate /HPF (0-FEW) Laboratory Tests Test 08/02/19 18:30 08/02/19 19:07 White Blood Count 8.4 x10^3/uL (4.0-11.0) Red Blood Count 3.95 x10^6/uL (4.30-5.70) Hemoglobin 14.0 g/dL (13.0-17.5) Hematocrit 38.8 % (39.0-53.0) Mean Corpuscular Volume 98 fL (79-100) Mean Corpuscular Hemoglobin 36 pg (25-35) Mean Corpuscular Hemoglobin Concent 36 g/dL (31-37) Red Cell Distribution Width 12.5 % (11.5-14.5) Platelet Count 227 x10^3/uL (140-400) Neutrophils (%) (Auto) 52 % (31-73) Lymphocytes (%) (Auto) 33 % (24-48) Monocytes (%) (Auto) 13 % (0-9) Eosinophils (%) (Auto) 2 % (0-3) Basophils (%) (Auto) 1 % (0-3) Neutrophils # (Auto) 4.4 x10^3/uL (1.8-7.7) Lymphocytes # (Auto) 2.7 x10^3/uL (1.0-4.8) Monocytes # (Auto) 1.1 x10^3/uL (0.0-1.1) Eosinophils # (Auto) 0.2 x10^3/uL (0.0-0.7) Basophils # (Auto) 0.1 x10^3/uL (0.0-0.2) Prothrombin Time 13.0 SEC (11.7-14.0) Prothromb Time International Ratio 1.0 (0.8-1.1) Activated Partial Thromboplast Time 31 SEC (24-38) Sodium Level 129 mmol/L (136-145) Potassium Level 3.9 mmol/L (3.5-5.1) Chloride Level 93 mmol/L (98-107) Carbon Dioxide Level 28 mmol/L (21-32) Anion Gap 8 (6-14) Blood Urea Nitrogen 7 mg/dL (8-26) Creatinine 0.9 mg/dL (0.7-1.3) Estimated GFR (Cockcroft-Gault) 87.3 BUN/Creatinine Ratio 8 (6-20) Glucose Level 103 mg/dL (70-99) Calcium Level 8.5 mg/dL (8.5-10.1) Magnesium Level 1.7 mg/dL (1.8-2.4) Total Bilirubin 0.3 mg/dL (0.2-1.0) Aspartate Amino Transf (AST/SGOT) 26 U/L (15-37) Alanine Aminotransferase (ALT/SGPT) 26 U/L (16-63) Alkaline Phosphatase 71 U/L (46-116) Troponin I Quantitative < 0.017 ng/mL (0.000-0.055) Total Protein 6.5 g/dL (6.4-8.2) Albumin 3.3 g/dL (3.4-5.0) Albumin/Globulin Ratio 1.0 (1.0-1.7) Thyroid Stimulating Hormone (TSH) 0.354 uIU/mL (0.358-3.74) Urine Collection Type Unknown Urine Color Yellow Urine Clarity Cloudy Urine pH 6.5 (<5.0-8.0) Urine Specific [place] <=1.005 (1.000-1.030) Urine Protein Negative mg/dL (NEG-TRACE) Urine Glucose (UA) Negative mg/dL (NEG) Urine Ketones (Stick) Negative mg/dL (NEG) Urine Blood Negative (NEG) Urine Nitrite Negative (NEG) Urine Bilirubin Negative (NEG) Urine Urobilinogen Dipstick 0.2 mg/dL (0.2 mg/dL) Urine Leukocyte Esterase Large (NEG) Urine RBC 11-20 /HPF (0-2) Urine WBC Tntc /HPF (0-4) Urine Bacteria Moderate /HPF (0-FEW) VTE Prophylaxis Ordered VTE Prophylaxis Devices: No VTE Pharmacological Prophylaxi: No Assessment/Plan Assessment/Plan left hemiparesis to hand and arm only with pain, 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 neuropathic pain, on gabapentin bipolar disorder, anxiety, insomnia hx anorexia, Justicifation of Admission Dx: Justifications for Admission: Justification of Admission Dx: Yes Comments: neuro, eval, consider acute MS or AICD or other acute neuro, Guillan-Gallant FINA REYNOLDS MD Aug 02, 2019 21:43
[2019-08-02] MEDS ORDERED: diphenhydrAMINE HCL 25 MG CAPSULE PO PRN (21:45)
[2019-08-02] MEDS ORDERED: ALPRAZolam 1 MG TABLET PO PRN (21:45)
[2019-08-02] MEDS ORDERED: LOPERAMIDE 2 MG CAPSULE PO PRN (21:45)
[2019-08-02] MEDS ORDERED: RAMELTEON 8 MG PO PRN (21:45)
[2019-08-02] MEDS ORDERED: ZIPR40CA2 PO (23:00)
[2019-08-02] MEDS ORDERED: MULT-245 PO (23:00)
[2019-08-02] MEDS ORDERED: CALC-515 PO (23:00)
[2019-08-02] MEDS ORDERED: GABA300C18 PO (23:00)
[2019-08-02] MEDS ORDERED: SODI1TAB15 PO (23:00)
[2019-08-02] MEDS ORDERED: SALI44.3 MM (23:00)
[2019-08-02] MEDS ORDERED: DULO60CA6 PO (23:00)
[2019-08-02 23:25] VITALS: BP 133/78
[2019-08-03] MEDS: GABAPENTIN 300 MG CAPSULE. PO SCH ×3 (00:15→14:45)
[2019-08-03] MEDS: ZIPRASIDONE 20 MG CAPSULE PO SCH ×2 (00:16→09:52)
[2019-08-03] MEDS: VENLAFAXINE 50 MG TABLET. PO SCH ×3 (00:17→14:44)
[2019-08-03] MEDS: NICOTINE 21MG PATCH. TD PRN ×2 (00:33→11:42)
[2019-08-03 02:54] VITALS: BP 104/60
[2019-08-03 04:42] LABS: BASO % 1 % (0-3); EOS # 0.2 x10^3/uL (0.0-0.7); EOS % 2 % (0-3); HEMATOCRIT 42.1 % (39.0-53.0); HEMOGLOBIN 14.3 g/dL (13.0-17.5); LYMPH # 2.9 x10^3/uL (1.0-4.8); LYMPH % 34 % (24-48); MEAN CORPUSCULAR HEMOGLOBIN 34 pg (25-35); MEAN CORPUSCULAR HGB CONC 34 g/dL (31-37); MEAN CORPUSCULAR VOLUME 101 fL (79-100); MONO % 11 % (0-9); NEUT # 4.5 x10^3/uL (1.8-7.7); NEUT % 52 % (31-73); PLATELET COUNT 226 x10^3/uL (140-400); RED BLOOD COUNT 4.19 x10^6/uL (4.30-5.70); RED CELL DISTRIBUTION WIDTH 12.5 % (11.5-14.5); WHITE BLOOD COUNT 8.6 x10^3/uL (4.0-11.0)
[2019-08-03 05:02] LABS: CALCIUM 8.5 mg/dL (8.5-10.1); CREATININE 0.8 mg/dL (0.7-1.3); POTASSIUM 3.9 mmol/L (3.5-5.1)
--- NOTE | 2019-08-03 06:51 | EKG ---
[facility] [address] [place] [address] Test Date: 2019-08-02 Test Time: 19:09:23 Pat Name: KENISHA NICHOLS Department: Room: [facility] Gender: M Director Of Occupational Health: ; : 1965 Requested By: SURESH FORD Order Number: [id number] Reading MD: Florian Rodas Measurements Intervals [place] Rate: 67 P: 71 VA: 152 QRS: 76 QRSD: 92 T: 60 QT: 360 QTc: 383 Interpretive Statements SINUS RHYTHM Electronically Signed On 08-06-2019 16:06:39 CDT by Florian Rodas
[2019-08-03 07:00] VITALS: BP 128/78
[2019-08-03] MEDS: ALBUTEROL SULFATE 2.5 MG/3 ML NEBU. NEB SCH ×4 (07:54→19:47)
[2019-08-03] MEDS: BUDESONIDE 0.5 MG/2 ML NEBU. NEB SCH ×2 (07:54→19:47)
[2019-08-03] MEDS ORDERED: PROPRANOLOL 40 MG TABLET. PO SCH (09:00)
[2019-08-03] MEDS ORDERED: POLYETHYLENE GLYCOL 3350 17 GM PACKET. PO PRN (09:00)
[2019-08-03] MEDS ORDERED: VENLAFAXINE 50 MG TABLET. PO SCH (09:00)
[2019-08-03] MEDS ORDERED: OLANZapine 5 MG TABLET PO SCH ×2 (09:00→21:45)
[2019-08-03] MEDS ORDERED: ZIPRASIDONE 20 MG CAPSULE PO SCH (09:00)
[2019-08-03] MEDS ORDERED: NICOTINE 21MG PATCH. TD SCH (09:00)
[2019-08-03] MEDS ORDERED: GABAPENTIN 300 MG CAPSULE. PO SCH ×2 (09:00→21:45)
--- NOTE | 2019-08-03 09:25 | PDOC ---
PROGRESS NOTES Chief Complaint Chief Complaint left hemiparesis to hand and arm reported but patient is able to move his hand and make a fist and seems to have appropirate strength, reports parestesias 2 days ago. Patient is right handed. 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 neuropathic pain, on gabapentin bipolar disorder, anxiety, insomnia hx anorexia, Plan: neurology consult MRI of the head will check vitamin b12 level further recommendations based on clinical course. History of Present Illness History of Present Illness No new complaitns, still having left sided weakness as per patient despite being able to move extremity. Patient denies pain over the affected area, good pulses, no changes in the color of the skin . No focal neurological deficits. Vitals Vitals Vital Signs Date Time Temp Pulse Resp B/P (MAP) Pulse Ox O2 Delivery O2 Flow Rate FiO2 08/03/19 08:06 97 Room Air 08/03/19 07:00 97.7 61 18 128/78 (95) 97.7 Physical Exam General: Alert, Cooperative Heart: Regular rate, Normal S1, Normal S2 Lungs: Clear Abdomen: Normal bowel sounds, Soft Extremities: No clubbing, No cyanosis, Normal pulses Skin: No rashes, No significant lesion Labs LABS Laboratory Tests Test 08/02/19 18:30 08/02/19 19:07 08/03/19 03:45 White Blood Count 8.4 x10^3/uL (4.0-11.0) 8.6 x10^3/uL (4.0-11.0) Red Blood Count 3.95 x10^6/uL (4.30-5.70) 4.19 x10^6/uL (4.30-5.70) Hemoglobin 14.0 g/dL (13.0-17.5) 14.3 g/dL (13.0-17.5) Hematocrit 38.8 % (39.0-53.0) 42.1 % (39.0-53.0) Mean Corpuscular Volume 98 fL (79-100) 101 fL (79-100) Mean Corpuscular Hemoglobin 36 pg (25-35) 34 pg (25-35) Mean Corpuscular Hemoglobin Concent 36 g/dL (31-37) 34 g/dL (31-37) Red Cell Distribution Width 12.5 % (11.5-14.5) 12.5 % (11.5-14.5) Platelet Count 227 x10^3/uL (140-400) 226 x10^3/uL (140-400) Neutrophils (%) (Auto) 52 % (31-73) 52 % (31-73) Lymphocytes (%) (Auto) 33 % (24-48) 34 % (24-48) Monocytes (%) (Auto) 13 % (0-9) 11 % (0-9) Eosinophils (%) (Auto) 2 % (0-3) 2 % (0-3) Basophils (%) (Auto) 1 % (0-3) 1 % (0-3) Neutrophils # (Auto) 4.4 x10^3/uL (1.8-7.7) 4.5 x10^3/uL (1.8-7.7) Lymphocytes # (Auto) 2.7 x10^3/uL (1.0-4.8) 2.9 x10^3/uL (1.0-4.8) Monocytes # (Auto) 1.1 x10^3/uL (0.0-1.1) 1.0 x10^3/uL (0.0-1.1) Eosinophils # (Auto) 0.2 x10^3/uL (0.0-0.7) 0.2 x10^3/uL (0.0-0.7) Basophils # (Auto) 0.1 x10^3/uL (0.0-0.2) 0.0 x10^3/uL (0.0-0.2) Prothrombin Time 13.0 SEC (11.7-14.0) Prothromb Time International Ratio 1.0 (0.8-1.1) Activated Partial Thromboplast Time 31 SEC (24-38) Sodium Level 129 mmol/L (136-145) 135 mmol/L (136-145) Potassium Level 3.9 mmol/L (3.5-5.1) 3.9 mmol/L (3.5-5.1) Chloride Level 93 mmol/L (98-107) 100 mmol/L (98-107) Carbon Dioxide Level 28 mmol/L (21-32) 31 mmol/L (21-32) Anion Gap 8 (6-14) 4 (6-14) Blood Urea Nitrogen 7 mg/dL (8-26) 6 mg/dL (8-26) Creatinine 0.9 mg/dL (0.7-1.3) 0.8 mg/dL (0.7-1.3) Estimated GFR (Cockcroft-Gault) 87.3 100.0 BUN/Creatinine Ratio 8 (6-20) Glucose Level 103 mg/dL (70-99) 90 mg/dL (70-99) Calcium Level 8.5 mg/dL (8.5-10.1) 8.5 mg/dL (8.5-10.1) Magnesium Level 1.7 mg/dL (1.8-2.4) Total Bilirubin 0.3 mg/dL (0.2-1.0) Aspartate Amino Transf (AST/SGOT) 26 U/L (15-37) Alanine Aminotransferase (ALT/SGPT) 26 U/L (16-63) Alkaline Phosphatase 71 U/L (46-116) Troponin I Quantitative < 0.017 ng/mL (0.000-0.055) Total Protein 6.5 g/dL (6.4-8.2) Albumin 3.3 g/dL (3.4-5.0) Albumin/Globulin Ratio 1.0 (1.0-1.7) Thyroid Stimulating Hormone (TSH) 0.354 uIU/mL (0.358-3.74) Urine Collection Type Unknown Urine Color Yellow Urine Clarity Cloudy Urine pH 6.5 (<5.0-8.0) Urine Specific [place] <=1.005 (1.000-1.030) Urine Protein Negative mg/dL (NEG-TRACE) Urine Glucose (UA) Negative mg/dL (NEG) Urine Ketones (Stick) Negative mg/dL (NEG) Urine Blood Negative (NEG) Urine Nitrite Negative (NEG) Urine Bilirubin Negative (NEG) Urine Urobilinogen Dipstick 0.2 mg/dL (0.2 mg/dL) Urine Leukocyte Esterase Large (NEG) Urine RBC 11-20 /HPF (0-2) Urine WBC Tntc /HPF (0-4) Urine Bacteria Moderate /HPF (0-FEW) Assessment and Plan Assessmemt and Plan Problems Medical Problems: (1) Left-sided weakness Status: Acute Comment Review of Relevant I have reviewed the following items [facility] (where applicable) has been applied. Labs Laboratory Tests Test 08/02/19 18:30 08/02/19 19:07 08/03/19 03:45 White Blood Count 8.4 x10^3/uL (4.0-11.0) 8.6 x10^3/uL (4.0-11.0) Red Blood Count 3.95 x10^6/uL (4.30-5.70) 4.19 x10^6/uL (4.30-5.70) Hemoglobin 14.0 g/dL (13.0-17.5) 14.3 g/dL (13.0-17.5) Hematocrit 38.8 % (39.0-53.0) 42.1 % (39.0-53.0) Mean Corpuscular Volume 98 fL (79-100) 101 fL (79-100) Mean Corpuscular Hemoglobin 36 pg (25-35) 34 pg (25-35) Mean Corpuscular Hemoglobin Concent 36 g/dL (31-37) 34 g/dL (31-37) Red Cell Distribution Width 12.5 % (11.5-14.5) 12.5 % (11.5-14.5) Platelet Count 227 x10^3/uL (140-400) 226 x10^3/uL (140-400) Neutrophils (%) (Auto) 52 % (31-73) 52 % (31-73) Lymphocytes (%) (Auto) 33 % (24-48) 34 % (24-48) Monocytes (%) (Auto) 13 % (0-9) 11 % (0-9) Eosinophils (%) (Auto) 2 % (0-3) 2 % (0-3) Basophils (%) (Auto) 1 % (0-3) 1 % (0-3) Neutrophils # (Auto) 4.4 x10^3/uL (1.8-7.7) 4.5 x10^3/uL (1.8-7.7) Lymphocytes # (Auto) 2.7 x10^3/uL (1.0-4.8) 2.9 x10^3/uL (1.0-4.8) Monocytes # (Auto) 1.1 x10^3/uL (0.0-1.1) 1.0 x10^3/uL (0.0-1.1) Eosinophils # (Auto) 0.2 x10^3/uL (0.0-0.7) 0.2 x10^3/uL (0.0-0.7) Basophils # (Auto) 0.1 x10^3/uL (0.0-0.2) 0.0 x10^3/uL (0.0-0.2) Prothrombin Time 13.0 SEC (11.7-14.0) Prothromb Time International Ratio 1.0 (0.8-1.1) Activated Partial Thromboplast Time 31 SEC (24-38) Sodium Level 129 mmol/L (136-145) 135 mmol/L (136-145) Potassium Level 3.9 mmol/L (3.5-5.1) 3.9 mmol/L (3.5-5.1) Chloride Level 93 mmol/L (98-107) 100 mmol/L (98-107) Carbon Dioxide Level 28 mmol/L (21-32) 31 mmol/L (21-32) Anion Gap 8 (6-14) 4 (6-14) Blood Urea Nitrogen 7 mg/dL (8-26) 6 mg/dL (8-26) Creatinine 0.9 mg/dL (0.7-1.3) 0.8 mg/dL (0.7-1.3) Estimated GFR (Cockcroft-Gault) 87.3 100.0 BUN/Creatinine Ratio 8 (6-20) Glucose Level 103 mg/dL (70-99) 90 mg/dL (70-99) Calcium Level 8.5 mg/dL (8.5-10.1) 8.5 mg/dL (8.5-10.1) Magnesium Level 1.7 mg/dL (1.8-2.4) Total Bilirubin 0.3 mg/dL (0.2-1.0) Aspartate Amino Transf (AST/SGOT) 26 U/L (15-37) Alanine Aminotransferase (ALT/SGPT) 26 U/L (16-63) Alkaline Phosphatase 71 U/L (46-116) Troponin I Quantitative < 0.017 ng/mL (0.000-0.055) Total Protein 6.5 g/dL (6.4-8.2) Albumin 3.3 g/dL (3.4-5.0) Albumin/Globulin Ratio 1.0 (1.0-1.7) Thyroid Stimulating Hormone (TSH) 0.354 uIU/mL (0.358-3.74) Urine Collection Type Unknown Urine Color Yellow Urine Clarity Cloudy Urine pH 6.5 (<5.0-8.0) Urine Specific [place] <=1.005 (1.000-1.030) Urine Protein Negative mg/dL (NEG-TRACE) Urine Glucose (UA) Negative mg/dL (NEG) Urine Ketones (Stick) Negative mg/dL (NEG) Urine Blood Negative (NEG) Urine Nitrite Negative (NEG) Urine Bilirubin Negative (NEG) Urine Urobilinogen Dipstick 0.2 mg/dL (0.2 mg/dL) Urine Leukocyte Esterase Large (NEG) Urine RBC 11-20 /HPF (0-2) Urine WBC Tntc /HPF (0-4) Urine Bacteria Moderate /HPF (0-FEW) Laboratory Tests Test 08/02/19 18:30 08/02/19 19:07 08/03/19 03:45 White Blood Count 8.4 x10^3/uL (4.0-11.0) 8.6 x10^3/uL (4.0-11.0) Red Blood Count 3.95 x10^6/uL (4.30-5.70) 4.19 x10^6/uL (4.30-5.70) Hemoglobin 14.0 g/dL (13.0-17.5) 14.3 g/dL (13.0-17.5) Hematocrit 38.8 % (39.0-53.0) 42.1 % (39.0-53.0) Mean Corpuscular Volume 98 fL (79-100) 101 fL (79-100) Mean Corpuscular Hemoglobin 36 pg (25-35) 34 pg (25-35) Mean Corpuscular Hemoglobin Concent 36 g/dL (31-37) 34 g/dL (31-37) Red Cell Distribution Width 12.5 % (11.5-14.5) 12.5 % (11.5-14.5) Platelet Count 227 x10^3/uL (140-400) 226 x10^3/uL (140-400) Neutrophils (%) (Auto) 52 % (31-73) 52 % (31-73) Lymphocytes (%) (Auto) 33 % (24-48) 34 % (24-48) Monocytes (%) (Auto) 13 % (0-9) 11 % (0-9) Eosinophils (%) (Auto) 2 % (0-3) 2 % (0-3) Basophils (%) (Auto) 1 % (0-3) 1 % (0-3) Neutrophils # (Auto) 4.4 x10^3/uL (1.8-7.7) 4.5 x10^3/uL (1.8-7.7) Lymphocytes # (Auto) 2.7 x10^3/uL (1.0-4.8) 2.9 x10^3/uL (1.0-4.8) Monocytes # (Auto) 1.1 x10^3/uL (0.0-1.1) 1.0 x10^3/uL (0.0-1.1) Eosinophils # (Auto) 0.2 x10^3/uL (0.0-0.7) 0.2 x10^3/uL (0.0-0.7) Basophils # (Auto) 0.1 x10^3/uL (0.0-0.2) 0.0 x10^3/uL (0.0-0.2) Prothrombin Time 13.0 SEC (11.7-14.0) Prothromb Time International Ratio 1.0 (0.8-1.1) Activated Partial Thromboplast Time 31 SEC (24-38) Sodium Level 129 mmol/L (136-145) 135 mmol/L (136-145) Potassium Level 3.9 mmol/L (3.5-5.1) 3.9 mmol/L (3.5-5.1) Chloride Level 93 mmol/L (98-107) 100 mmol/L (98-107) Carbon Dioxide Level 28 mmol/L (21-32) 31 mmol/L (21-32) Anion Gap 8 (6-14) 4 (6-14) Blood Urea Nitrogen 7 mg/dL (8-26) 6 mg/dL (8-26) Creatinine 0.9 mg/dL (0.7-1.3) 0.8 mg/dL (0.7-1.3) Estimated GFR (Cockcroft-Gault) 87.3 100.0 BUN/Creatinine Ratio 8 (6-20) Glucose Level 103 mg/dL (70-99) 90 mg/dL (70-99) Calcium Level 8.5 mg/dL (8.5-10.1) 8.5 mg/dL (8.5-10.1) Magnesium Level 1.7 mg/dL (1.8-2.4) Total Bilirubin 0.3 mg/dL (0.2-1.0) Aspartate Amino Transf (AST/SGOT) 26 U/L (15-37) Alanine Aminotransferase (ALT/SGPT) 26 U/L (16-63) Alkaline Phosphatase 71 U/L (46-116) Troponin I Quantitative < 0.017 ng/mL (0.000-0.055) Total Protein 6.5 g/dL (6.4-8.2) Albumin 3.3 g/dL (3.4-5.0) Albumin/Globulin Ratio 1.0 (1.0-1.7) Thyroid Stimulating Hormone (TSH) 0.354 uIU/mL (0.358-3.74) Urine Collection Type Unknown Urine Color Yellow Urine Clarity Cloudy Urine pH 6.5 (<5.0-8.0) Urine Specific [place] <=1.005 (1.000-1.030) Urine Protein Negative mg/dL (NEG-TRACE) Urine Glucose (UA) Negative mg/dL (NEG) Urine Ketones (Stick) Negative mg/dL (NEG) Urine Blood Negative (NEG) Urine Nitrite Negative (NEG) Urine Bilirubin Negative (NEG) Urine Urobilinogen Dipstick 0.2 mg/dL (0.2 mg/dL) Urine Leukocyte Esterase Large (NEG) Urine RBC 11-20 /HPF (0-2) Urine WBC Tntc /HPF (0-4) Urine Bacteria Moderate /HPF (0-FEW) Medications Current Medications Sodium Chloride 1,000 ml @ 1,000 mls/hr Q1H IV Last administered on 08/02/19at 19:08; Start 08/02/19 at 18:36; Stop 08/02/19 at 19:35; Status DC Iohexol (Omnipaque 300 Mg/ml) 75 ml 1X ONCE IV Last administered on 08/02/19at 20:19; Start 08/02/19 at 20:00; Stop 08/02/19 at 20:01; Status DC Info (CONTRAST GIVEN -- Rx MONITORING) 1 each PRN DAILY PRN MC SEE COMMENTS; Start 08/02/19 at 20:00; Stop 08/04/19 at 19:59 Aspirin (Collins Aspirin) 325 mg 1X ONCE PO Last administered on 08/02/19at 21:11; Start 08/02/19 at 21:15; Stop 08/02/19 at 21:16; Status DC Diphenhydramine HCl (Benadryl) 50 mg PRN QHS PRN PO INSOMNIA Last administered on 08/03/19at 00:15; Start 08/02/19 at 21:45 Gabapentin (Neurontin) 900 mg TID PO ; Start 08/03/19 at 09:00; Stop 08/02/19 at 22:13; Status DC Loperamide HCl (Imodium) 2 mg PRN Q15MIN PRN PO DIARRHEA; Start 08/02/19 at 21:45 Polyethylene Glycol (miraLAX PACKET) 17 gm PRN DAILY PRN PO CONSTIPATION; Start 08/03/19 at 09:00 Propranolol HCl (Inderal) 40 mg BID PO ; Start 08/03/19 at 09:00 Albuterol Sulfate (Ventolin Neb Soln) 2.5 mg RTQID NEB Last administered on 08/03/19at 07:54; Start 08/03/19 at 08:00 Olanzapine (ZyPREXA) 15 mg DAILY PO ; Start 08/03/19 at 09:00 Pantoprazole Sodium (Protonix) 40 mg DAILYAC PO ; Start 08/03/19 at 07:30 Non-Formulary Medication (Ramelteon (Rozerem)) 8 mg PRN QHS PRN PO INSOMNIA; Start 08/02/19 at 21:45; Status UNV Venlafaxine HCl (Effexor) 50 mg TID PO ; Start 08/03/19 at 09:00; Stop 08/02/19 at 22:13; Status DC Ziprasidone (Geodon) 40 mg BID PO ; Start 08/03/19 at 09:00; Stop 08/02/19 at 22:13; Status DC Nicotine (Nicoderm Cq 21mg) 1 patch DAILY TD ; Start 08/03/19 at 09:00; Stop 08/03/19 at 00:20; Status DC Alprazolam (Xanax) 1 mg PRN Q8HRS PRN PO ANXIETY / AGITATION Last administered on 08/03/19at 00:15; Start 08/02/19 at 21:45 Budesonide (Pulmicort) 0.5 mg RTBID NEB Last administered on 08/03/19at 07:54; Start 08/03/19 at 08:00 Gabapentin (Neurontin) 900 mg TID PO Last administered on 08/03/19at 00:15; Start 08/02/19 at 22:15 Venlafaxine HCl (Effexor) 50 mg TID PO ; Start 08/02/19 at 22:15 Ziprasidone (Geodon) 40 mg BID PO Last administered on 08/03/19at 00:16; Start 08/02/19 at 22:15 Nicotine (Nicoderm Cq 21mg) 1 patch PRN DAILY PRN TD SMOKING CESSATION Last administered on 08/03/19at 00:33; Start 08/03/19 at 00:30 Benztropine Mesylate (Cogentin) 1 mg BID PO ; Start 08/03/19 at 09:00 Active Scripts Active [Nicotine 21MG] 1 PATCH Patch 1 Patch TD DAILY Reported Multi Vitamin Daily (Multivitamin) 1 Each Tablet 1 Each PO DAILY Thermotabs Tablet (Sodium Cl/Potassium Chloride) 1 Each Tablet 7 Tab PO DAILY Rolaids Chewable Tablet (Calcium Carb/Magnesium Hydrox) 1 Each Tab.chew 1 Each PO PRN Q2HR PRN Biotene Moisturizing Mouth (Saliva Stimulant Agents Comb.3) 44.3 Ml [place] 2 Sprays MM PRN Q2HR PRN Geodon (Ziprasidone Hcl) 40 Mg Capsule 120 Mg PO QHS Gabapentin (Gabapentin) 300 Mg Capsule 300 Mg PO 0800,1200 Cymbalta (Duloxetine Hcl) 60 Mg Capsule.dr 60 Mg PO DAILY Zyprexa (Olanzapine) 15 Mg Tablet 30 Mg PO QHS Propranolol Hcl 40 Mg Tablet 120 Mg PO DAILY Proair Hfa Inhaler (Albuterol Sulfate) 8.5 Gm Hfa.aer.ad 2 Puff IH PRN Q4-6HRS PRN 21 Days Miralax (Polyethylene Glycol 3350) 119 Gm Powder 17 Gm PO DAILY PRN dissolve in water Breo Ellipta 200-25 Mcg INH (Fluticasone/Vilanterol) 1 Each Blst.w.dev 1 Puff IH DAILY Xanax (Alprazolam) 1 Mg Tablet 3 Tab PO HS Xanax (Alprazolam) 0.25 Mg Tablet 0.25 Mg PO PRN Q6HRS PRN Benadryl (Diphenhydramine Hcl) 25 Mg Capsule 75 Mg PO QHS Rozerem (Ramelteon) 8 Mg Tablet 8 Mg PO PRN QHS PRN Omeprazole 20 Mg Capsule. 1 Cap PO DAILY Neurontin (Gabapentin) 300 Mg Capsule 900 Mg PO QHS Geodon (Ziprasidone Hcl) 40 Mg Capsule 80 Mg PO DAILY Vitals/I & O Vital Sign - Last 24 Hours 08/02/19 08/02/19 08/02/19 08/02/19 18:17 19:10 20:12 21:12 Temp 98.1 98.1 Pulse 95 65 68 53 Resp 18 18 18 18 B/P (MAP) 122/73 (89) 107/68 (81) 118/65 (82) 145/73 (97) Pulse Ox 94 96 97 99 O2 Delivery Room Air Room Air Room Air Room Air 08/02/19 08/02/19 08/03/19 08/03/19 22:00 23:25 02:54 07:00 Temp 98.2 97.8 97.7 98.2 97.8 97.7 Pulse 48 55 61 Resp 16 16 18 B/P (MAP) 133/78 (96) 104/60 (75) 128/78 (95) Pulse Ox 97 96 98 O2 Delivery Room Air Room Air Room Air Room Air 08/03/19 08/03/19 07:57 08:06 Pulse Ox 97 97 O2 Delivery Room Air Room Air Intake and Output 08/02/19 08/02/19 08/03/19 14:59 22:59 06:59 Intake Total 300 ml Balance 300 ml KINJAL WINN MD Aug 03, 2019 09:25
[2019-08-03] MEDS: PANTOPRAZOLE 40 MG TABLET.DR. PO SCH (09:52)
[2019-08-03] MEDS: BENZTROPINE MESYLATE 1 MG TABLET. PO SCH ×2 (10:01→21:57)
--- NOTE | 2019-08-03 10:04 | PDOC2 ---
NEUROLOGY CONSULT Date of Admission Date of Admission DATE: 08/03/19 TIME: 09:55 Reason for Consult Reason for Consult: Stroke symptoms Referring Physician Referring Physician: Dr. Austin PCP: Dr. Kim Source Source: Chart review, Patient History of Present Illness History of Present Illness The patient is a 54-year-old right-handed male who 2 nights ago noted numbness into fingers of the left hand. Yesterday it spread to the entire left arm and somewhat in the left leg. His left arm has drawn up in his week. Note that he is on two neuroleptic medications for his bipolar. He denies headache, diplopia, in the other facial weakness or numbness, cognitive change, stressing his life. He is feeling a little bit better this morning. 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 Past Medical History Cardiovascular: HTN, Hyperlipidemia Pulmonary: Asthma, COPD, Pneumonia GI: Constipation ( diarrhea), GERD, Other ( Pool's esophagus) Psych: Anxiety, Bipolar, Depression, Panic, Other (Anorexia requiring hospitalization, obsessive-compulsive disorder) Endocrine: Hyperthyroidism ( resolved) Past Surgical History Past Surgical History: Other ( bilateral carpal tunnel) Family History Family History: Cancer Social History Social History Disabled, single, 1-2 packs of cigarettes per day, no alcohol Current Medications Current Medications Current Medications Sodium Chloride 1,000 ml @ 1,000 mls/hr Q1H IV Last administered on 08/02/19at 19:08; Start 08/02/19 at 18:36; Stop 08/02/19 at 19:35; Status DC Iohexol (Omnipaque 300 Mg/ml) 75 ml 1X ONCE IV Last administered on 08/02/19at 20:19; Start 08/02/19 at 20:00; Stop 08/02/19 at 20:01; Status DC Info (CONTRAST GIVEN -- Rx MONITORING) 1 each PRN DAILY PRN MC SEE COMMENTS; Start 08/02/19 at 20:00; Stop 08/04/19 at 19:59 Aspirin (Collins Aspirin) 325 mg 1X ONCE PO Last administered on 08/02/19at 21:11; Start 08/02/19 at 21:15; Stop 08/02/19 at 21:16; Status DC Diphenhydramine HCl (Benadryl) 50 mg PRN QHS PRN PO INSOMNIA Last administered on 08/03/19at 00:15; Start 08/02/19 at 21:45 Gabapentin (Neurontin) 900 mg TID PO ; Start 08/03/19 at 09:00; Stop 08/02/19 at 22:13; Status DC Loperamide HCl (Imodium) 2 mg PRN Q15MIN PRN PO DIARRHEA; Start 08/02/19 at 21:45 Polyethylene Glycol (miraLAX PACKET) 17 gm PRN DAILY PRN PO CONSTIPATION; Start 08/03/19 at 09:00 Propranolol HCl (Inderal) 40 mg BID PO ; Start 08/03/19 at 09:00 Albuterol Sulfate (Ventolin Neb Soln) 2.5 mg RTQID NEB Last administered on 08/03/19at 07:54; Start 08/03/19 at 08:00 Olanzapine (ZyPREXA) 15 mg DAILY PO ; Start 08/03/19 at 09:00 Pantoprazole Sodium (Protonix) 40 mg DAILYAC PO ; Start 08/03/19 at 07:30 Non-Formulary Medication (Ramelteon (Rozerem)) 8 mg PRN QHS PRN PO INSOMNIA; Start 08/02/19 at 21:45; Status UNV Venlafaxine HCl (Effexor) 50 mg TID PO ; Start 08/03/19 at 09:00; Stop 08/02/19 at 22:13; Status DC Ziprasidone (Geodon) 40 mg BID PO ; Start 08/03/19 at 09:00; Stop 08/02/19 at 22:13; Status DC Nicotine (Nicoderm Cq 21mg) 1 patch DAILY TD ; Start 08/03/19 at 09:00; Stop 08/03/19 at 00:20; Status DC Alprazolam (Xanax) 1 mg PRN Q8HRS PRN PO ANXIETY / AGITATION Last administered on 08/03/19at 00:15; Start 08/02/19 at 21:45 Budesonide (Pulmicort) 0.5 mg RTBID NEB Last administered on 08/03/19at 07:54; Start 08/03/19 at 08:00 Gabapentin (Neurontin) 900 mg TID PO Last administered on 08/03/19at 00:15; Start 08/02/19 at 22:15 Venlafaxine HCl (Effexor) 50 mg TID PO ; Start 08/02/19 at 22:15 Ziprasidone (Geodon) 40 mg BID PO Last administered on 08/03/19at 00:16; Start 08/02/19 at 22:15 Nicotine (Nicoderm Cq 21mg) 1 patch PRN DAILY PRN TD SMOKING CESSATION Last administered on 08/03/19at 00:33; Start 08/03/19 at 00:30 Benztropine Mesylate (Cogentin) 1 mg BID PO ; Start 08/03/19 at 09:00 Active Scripts Active [Nicotine 21MG] 1 PATCH Patch 1 Patch TD DAILY Reported Multi Vitamin Daily (Multivitamin) 1 Each Tablet 1 Each PO DAILY Thermotabs Tablet (Sodium Cl/Potassium Chloride) 1 Each Tablet 7 Tab PO DAILY Rolaids Chewable Tablet (Calcium Carb/Magnesium Hydrox) 1 Each Tab.chew 1 Each PO PRN Q2HR PRN Biotene Moisturizing Mouth (Saliva Stimulant Agents Comb.3) 44.3 Ml [place] 2 Sprays MM PRN Q2HR PRN Geodon (Ziprasidone Hcl) 40 Mg Capsule 120 Mg PO QHS Gabapentin (Gabapentin) 300 Mg Capsule 300 Mg PO 0800,1200 Cymbalta (Duloxetine Hcl) 60 Mg Capsule. 60 Mg PO DAILY Zyprexa (Olanzapine) 15 Mg Tablet 30 Mg PO QHS Propranolol Hcl 40 Mg Tablet 120 Mg PO DAILY Proair Hfa Inhaler (Albuterol Sulfate) 8.5 Gm Hfa.aer.ad 2 Puff IH PRN Q4-6HRS PRN 21 Days Miralax (Polyethylene Glycol 3350) 119 Gm Powder 17 Gm PO DAILY PRN dissolve in water Breo Ellipta 200-25 Mcg INH (Fluticasone/Vilanterol) 1 Each Blst.w.dev 1 Puff IH DAILY Xanax (Alprazolam) 1 Mg Tablet 3 Tab PO HS Xanax (Alprazolam) 0.25 Mg Tablet 0.25 Mg PO PRN Q6HRS PRN Benadryl (Diphenhydramine Hcl) 25 Mg Capsule 75 Mg PO QHS Rozerem (Ramelteon) 8 Mg Tablet 8 Mg PO PRN QHS PRN Omeprazole 20 Mg Capsule.dr 1 Cap PO DAILY Neurontin (Gabapentin) 300 Mg Capsule 900 Mg PO QHS Geodon (Ziprasidone Hcl) 40 Mg Capsule 80 Mg PO DAILY Allergies Allergies: Coded Allergies: benzocaine (Verified Allergy, Severe, "shuts of my breathing", 09/09/16) butamben (Verified Allergy, Severe, "shuts of my breathing", 09/09/16) tetracaine (Verified Allergy, Severe, "shuts of my breathing", 09/09/16) acetaminophen (Verified Adverse Reaction, Intermediate, nausea and vomiting, 09/09/16) oxycodone (Verified Adverse Reaction, Intermediate, nausea and vomiting, 09/09/16) propoxyphene (Verified Adverse Reaction, Intermediate, nausea and vomiting, 09/09/16) ROS Review of System Negative for fever, chills, weight loss, shortness of breath, chest pain, indigestion, hematochezia, melena, and dysuria. Full 14-point review of systems is negative. Physical Exam Physical Examination General: Well-developed, well-nourished white male in no acute distress HEENT: Normocephalic andatraumatic. Temporal arteriespulsatile and nontender. Neck: Supple without bruit, no meningismus Musculoskeletal: Stability:see neurologic. Gait exam:see neurologic. Tone:see neurologic.Strength:see neurologic. Neurological: Mental Status:intact, orientation, memory, attention span/concentration, language, fund of knowledge normal. Cranial Nerves:Pupils equal and reactive to light, extraocular movements areintact, visual duke are full to confrontation. Facial sensation is normal. There is no facial asymmetry. Vestibulo-ocular reflex is intact. Palate elevates and tongue protrudes in midline. All other cranial related problems are negative except as mentioned before.Reflexes:2+ and symmetric with flexor plantar responses. Motor: giveaway weakness in left arm, otherwise 5/5 strength with normal tone and bulk. Coordination:Finger-nose finger and [id number] testing are normal. He has dystonic posturing of the left upper extremity with some tremor, possible voluntary component, with left dysdiadochokinesia. Gait:Normal, including tandem. Sensory:Normal pinprick, vibration, light touch, proprioception. Vitals VITALS Vital Signs Date Time Temp Pulse Resp B/P (MAP) Pulse Ox O2 Delivery O2 Flow Rate FiO2 6/9/20 08:06 97 Room Air 08/03/19 07:00 97.7 61 18 128/78 (95) 97.7 Labs Labs Laboratory Tests Test 08/02/19 18:30 08/02/19 19:07 08/03/19 03:45 White Blood Count 8.4 x10^3/uL (4.0-11.0) 8.6 x10^3/uL (4.0-11.0) Red Blood Count 3.95 x10^6/uL (4.30-5.70) 4.19 x10^6/uL (4.30-5.70) Hemoglobin 14.0 g/dL (13.0-17.5) 14.3 g/dL (13.0-17.5) Hematocrit 38.8 % (39.0-53.0) 42.1 % (39.0-53.0) Mean Corpuscular Volume 98 fL (79-100) 101 fL (79-100) Mean Corpuscular Hemoglobin 36 pg (25-35) 34 pg (25-35) Mean Corpuscular Hemoglobin Concent 36 g/dL (31-37) 34 g/dL (31-37) Red Cell Distribution Width 12.5 % (11.5-14.5) 12.5 % (11.5-14.5) Platelet Count 227 x10^3/uL (140-400) 226 x10^3/uL (140-400) Neutrophils (%) (Auto) 52 % (31-73) 52 % (31-73) Lymphocytes (%) (Auto) 33 % (24-48) 34 % (24-48) Monocytes (%) (Auto) 13 % (0-9) 11 % (0-9) Eosinophils (%) (Auto) 2 % (0-3) 2 % (0-3) Basophils (%) (Auto) 1 % (0-3) 1 % (0-3) Neutrophils # (Auto) 4.4 x10^3/uL (1.8-7.7) 4.5 x10^3/uL (1.8-7.7) Lymphocytes # (Auto) 2.7 x10^3/uL (1.0-4.8) 2.9 x10^3/uL (1.0-4.8) Monocytes # (Auto) 1.1 x10^3/uL (0.0-1.1) 1.0 x10^3/uL (0.0-1.1) Eosinophils # (Auto) 0.2 x10^3/uL (0.0-0.7) 0.2 x10^3/uL (0.0-0.7) Basophils # (Auto) 0.1 x10^3/uL (0.0-0.2) 0.0 x10^3/uL (0.0-0.2) Prothrombin Time 13.0 SEC (11.7-14.0) Prothromb Time International Ratio 1.0 (0.8-1.1) Activated Partial Thromboplast Time 31 SEC (24-38) Sodium Level 129 mmol/L (136-145) 135 mmol/L (136-145) Potassium Level 3.9 mmol/L (3.5-5.1) 3.9 mmol/L (3.5-5.1) Chloride Level 93 mmol/L (98-107) 100 mmol/L (98-107) Carbon Dioxide Level 28 mmol/L (21-32) 31 mmol/L (21-32) Anion Gap 8 (6-14) 4 (6-14) Blood Urea Nitrogen 7 mg/dL (8-26) 6 mg/dL (8-26) Creatinine 0.9 mg/dL (0.7-1.3) 0.8 mg/dL (0.7-1.3) Estimated GFR (Cockcroft-Gault) 87.3 100.0 BUN/Creatinine Ratio 8 (6-20) Glucose Level 103 mg/dL (70-99) 90 mg/dL (70-99) Calcium Level 8.5 mg/dL (8.5-10.1) 8.5 mg/dL (8.5-10.1) Magnesium Level 1.7 mg/dL (1.8-2.4) Total Bilirubin 0.3 mg/dL (0.2-1.0) Aspartate Amino Transf (AST/SGOT) 26 U/L (15-37) Alanine Aminotransferase (ALT/SGPT) 26 U/L (16-63) Alkaline Phosphatase 71 U/L (46-116) Troponin I Quantitative < 0.017 ng/mL (0.000-0.055) Total Protein 6.5 g/dL (6.4-8.2) Albumin 3.3 g/dL (3.4-5.0) Albumin/Globulin Ratio 1.0 (1.0-1.7) Thyroid Stimulating Hormone (TSH) 0.354 uIU/mL (0.358-3.74) Urine Collection Type Unknown Urine Color Yellow Urine Clarity Cloudy Urine pH 6.5 (<5.0-8.0) Urine Specific [place] <=1.005 (1.000-1.030) Urine Protein Negative mg/dL (NEG-TRACE) Urine Glucose (UA) Negative mg/dL (NEG) Urine Ketones (Stick) Negative mg/dL (NEG) Urine Blood Negative (NEG) Urine Nitrite Negative (NEG) Urine Bilirubin Negative (NEG) Urine Urobilinogen Dipstick 0.2 mg/dL (0.2 mg/dL) Urine Leukocyte Esterase Large (NEG) Urine RBC 11-20 /HPF (0-2) Urine WBC Tntc /HPF (0-4) Urine Bacteria Moderate /HPF (0-FEW) Laboratory Tests Test 08/02/19 18:30 08/02/19 19:07 08/03/19 03:45 White Blood Count 8.4 x10^3/uL (4.0-11.0) 8.6 x10^3/uL (4.0-11.0) Red Blood Count 3.95 x10^6/uL (4.30-5.70) 4.19 x10^6/uL (4.30-5.70) Hemoglobin 14.0 g/dL (13.0-17.5) 14.3 g/dL (13.0-17.5) Hematocrit 38.8 % (39.0-53.0) 42.1 % (39.0-53.0) Mean Corpuscular Volume 98 fL (79-100) 101 fL (79-100) Mean Corpuscular Hemoglobin 36 pg (25-35) 34 pg (25-35) Mean Corpuscular Hemoglobin Concent 36 g/dL (31-37) 34 g/dL (31-37) Red Cell Distribution Width 12.5 % (11.5-14.5) 12.5 % (11.5-14.5) Platelet Count 227 x10^3/uL (140-400) 226 x10^3/uL (140-400) Neutrophils (%) (Auto) 52 % (31-73) 52 % (31-73) Lymphocytes (%) (Auto) 33 % (24-48) 34 % (24-48) Monocytes (%) (Auto) 13 % (0-9) 11 % (0-9) Eosinophils (%) (Auto) 2 % (0-3) 2 % (0-3) Basophils (%) (Auto) 1 % (0-3) 1 % (0-3) Neutrophils # (Auto) 4.4 x10^3/uL (1.8-7.7) 4.5 x10^3/uL (1.8-7.7) Lymphocytes # (Auto) 2.7 x10^3/uL (1.0-4.8) 2.9 x10^3/uL (1.0-4.8) Monocytes # (Auto) 1.1 x10^3/uL (0.0-1.1) 1.0 x10^3/uL (0.0-1.1) Eosinophils # (Auto) 0.2 x10^3/uL (0.0-0.7) 0.2 x10^3/uL (0.0-0.7) Basophils # (Auto) 0.1 x10^3/uL (0.0-0.2) 0.0 x10^3/uL (0.0-0.2) Prothrombin Time 13.0 SEC (11.7-14.0) Prothromb Time International Ratio 1.0 (0.8-1.1) Activated Partial Thromboplast Time 31 SEC (24-38) Sodium Level 129 mmol/L (136-145) 135 mmol/L (136-145) Potassium Level 3.9 mmol/L (3.5-5.1) 3.9 mmol/L (3.5-5.1) Chloride Level 93 mmol/L (98-107) 100 mmol/L (98-107) Carbon Dioxide Level 28 mmol/L (21-32) 31 mmol/L (21-32) Anion Gap 8 (6-14) 4 (6-14) Blood Urea Nitrogen 7 mg/dL (8-26) 6 mg/dL (8-26) Creatinine 0.9 mg/dL (0.7-1.3) 0.8 mg/dL (0.7-1.3) Estimated GFR (Cockcroft-Gault) 87.3 100.0 BUN/Creatinine Ratio 8 (6-20) Glucose Level 103 mg/dL (70-99) 90 mg/dL (70-99) Calcium Level 8.5 mg/dL (8.5-10.1) 8.5 mg/dL (8.5-10.1) Magnesium Level 1.7 mg/dL (1.8-2.4) Total Bilirubin 0.3 mg/dL (0.2-1.0) Aspartate Amino Transf (AST/SGOT) 26 U/L (15-37) Alanine Aminotransferase (ALT/SGPT) 26 U/L (16-63) Alkaline Phosphatase 71 U/L (46-116) Troponin I Quantitative < 0.017 ng/mL (0.000-0.055) Total Protein 6.5 g/dL (6.4-8.2) Albumin 3.3 g/dL (3.4-5.0) Albumin/Globulin Ratio 1.0 (1.0-1.7) Thyroid Stimulating Hormone (TSH) 0.354 uIU/mL (0.358-3.74) Urine Collection Type Unknown Urine Color Yellow Urine Clarity Cloudy Urine pH 6.5 (<5.0-8.0) Urine Specific [place] <=1.005 (1.000-1.030) Urine Protein Negative mg/dL (NEG-TRACE) Urine Glucose (UA) Negative mg/dL (NEG) Urine Ketones (Stick) Negative mg/dL (NEG) Urine Blood Negative (NEG) Urine Nitrite Negative (NEG) Urine Bilirubin Negative (NEG) Urine Urobilinogen Dipstick 0.2 mg/dL (0.2 mg/dL) Urine Leukocyte Esterase Large (NEG) Urine RBC 11-20 /HPF (0-2) Urine WBC Tntc /HPF (0-4) Urine Bacteria Moderate /HPF (0-FEW) Images Images CT head INDICATION: Left-sided weakness, numbness TECHNIQUE: Sequential axial images through the head were obtained without the administration of IV contrast. Comparisons: None FINDINGS: No focal parenchymal lesion or hemorrhage is identified. There is no midline shift or sulcal effacement. No acute vascular territory infarction is identified. [place]-white distinction is preserved. The ventricular system is within normal limits without compression hydrocephalus. The basal cisterns are well maintained. The visualized portions of the paranasal sinuses and mastoid air cells are well-pneumatized. No acute fractures. IMPRESSION: No acute intracranial abnormality. CTA head and neck INDICATION: Left-sided weakness, numbness TECHNIQUE: Sequential axial images through the head and neck obtained following the administration of 75 mL of Isovue-370 IV contrast. Sagittal and coronal reformatted images were reconstructed from the axial data and reviewed. 3-D reformatted images were reconstructed from the axial data and reviewed. Comparisons: CT head without contrast same day FINDINGS: CTA neck: Visualized portions of the thoracic aorta are unremarkable. Right common carotid artery is patent without evidence of stenosis, occlusion or aneurysm. Mild calcified plaque at the origin of the right internal carotid artery without significant stenosis. Left common carotid artery is patent without evidence of stenosis, occlusion or aneurysm. Mild calcified plaque at the origin of the left internal carotid artery without significant stenosis. Right vertebral artery is patent to the basilar confluence without evidence of stenosis, occlusion or aneurysm. Left vertebral artery is patent to the basilar confluence without evidence of stenosis, occlusion or aneurysm. CTA HEAD: Mild calcified plaque at the cavernous segment of the right internal carotid artery. Right MCA is patent. Right DORI is patent. Mild calcified plaque at the cavernous segment of the left internal carotid artery. Left MCA is patent. Left DORI is patent. Basilar artery is patent without evidence of stenosis, occlusion or aneurysm. beveler are patent. IMPRESSION: 1. No large vessel occlusion. 2. Mild calcified plaque at the cavernous segment of the internal carotid arteries bilaterally, without evidence of significant stenosis. 3. Mild calcified plaque at the origin of the internal carotid arteries bilaterally without significant stenosis. 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 I believe there is a voluntary psychogenic component. I find no evidence of stroke, TIA, seizure, or other neurologic issue Recommendations: Trial of Cogentin, discussed side effects He will need to discuss with his psychiatrist dialing back on his neuroleptics, but it appears he is somewhat precarious with control of his symptoms and needs these for now. MRI of the brain, but scanner is not working. One more night of observation. Thank you for letting me help with the patient's care. SUJATA AVELAR MD Aug 03, 2019 10:04
[2019-08-03 11:09] VITALS: BP 123/78
--- NOTE | 2019-08-03 12:27 | NUR ---
SW following for discharge planning. SW spoke with RN and reviewed chart. SW met with pt. Pt is and plans to return home at discharge. Pt on room air. Pt reports he can afford his medications. Pt stated he has private duty care and transportation services from [employer] that he pays for [id number]. Pt stated he also has services from the [facility] per dx of Anxiety and Bipolar and a hx of Anorexia. Pt stated that he has a psychiatrist, counselor and social worker assistant through the [facility] and that he sees his clinicians on a regular basis. Pt stated no concerns other than he would like to start seeing a delicatessen goods stock clerk. SW provided list of providers in the area per pt request. No additional SW needs identified at this time.
[2019-08-03 15:00] VITALS: BP 107/69
[2019-08-03 19:00] VITALS: BP 142/84
[2019-08-03] MEDS ORDERED: diphenhydrAMINE HCL 25 MG CAPSULE PO SCH (21:45)
[2019-08-03] MEDS ORDERED: ALPRAZolam 1 MG TABLET PO SCH (22:00)
[2019-08-03] MEDS ORDERED: ZIPRASIDONE 60 MG CAPSULE. PO SCH (22:00)
[2019-08-03 23:00] VITALS: BP 111/63
[2019-08-04 03:00] VITALS: BP 116/72
[2019-08-04 07:00] VITALS: BP 119/78
[2019-08-04] MEDS: BUDESONIDE 0.5 MG/2 ML NEBU. NEB SCH (07:42)
[2019-08-04] MEDS: ALBUTEROL SULFATE 2.5 MG/3 ML NEBU. NEB SCH ×3 (07:42→15:35)
[2019-08-04] MEDS ORDERED: DULoxetine HCL 30 MG CAPSULE.DR PO SCH (09:00)
[2019-08-04] MEDS ORDERED: PROPRANOLOL ER 60 MG CAP.SA.24H. PO SCH (09:00)
[2019-08-04] MEDS ORDERED: ZIPRASIDONE 20 MG CAPSULE PO SCH (09:00)
[2019-08-04] MEDS: BENZTROPINE MESYLATE 1 MG TABLET. PO SCH (09:08)
[2019-08-04] MEDS: PANTOPRAZOLE 40 MG TABLET.DR. PO SCH (09:08)
[2019-08-04] MEDS: GABAPENTIN 300 MG CAPSULE. PO SCH ×2 (09:08→13:36)
--- NOTE | 2019-08-04 10:17 | PDOC ---
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 I believe there is a voluntary psychogenic component. I find no evidence of stroke, TIA, seizure, or other neurologic issue Plan Okay for discharge Domenic, discussed side effects He can discuss with his psychiatrist dialing back on his neuroleptics, but he is precarious with control of his symptoms and It took a long time to achieve balance and find this correct regimen, so I doubt that he will be able to come off of any of his psychotropic medications. MRI of the brain, but scanner is not working. I will arrange as outpatient. Subjective Feels better, no side effects from Domenic Objective Vital Signs Date Time Temp Pulse Resp B/P (MAP) Pulse Ox O2 Delivery O2 Flow Rate FiO2 08/04/19 09:08 78 119/78 08/04/19 07:42 Room Air 08/04/19 07:00 97.8 18 96 97.8 Intake and Output 08/04/19 06:59 Intake Total 1700 ml Balance 1700 ml Intake Oral 1700 ml # Voids 5 PHYSICAL EXAM Alert. Oriented to time, place and person. PERRL. EOMI. CN: no focal findings. Muscle tone: normal. Muscle strength: 5/5, dystonic posturing of the left upper extremity now with no tremor, with left dysdiadochokinesia DTR: 2+ Plantar reflex: flexor Gait: normal. Sensory exam: no abnormal findings. No cerebellar signs elicited. Review of Relevant I have reviewed the following items sinai (where applicable) has been applied. Labs Laboratory Tests Test 08/02/19 18:30 08/02/19 19:07 08/03/19 03:45 White Blood Count 8.4 x10^3/uL (4.0-11.0) 8.6 x10^3/uL (4.0-11.0) Red Blood Count 3.95 x10^6/uL (4.30-5.70) 4.19 x10^6/uL (4.30-5.70) Hemoglobin 14.0 g/dL (13.0-17.5) 14.3 g/dL (13.0-17.5) Hematocrit 38.8 % (39.0-53.0) 42.1 % (39.0-53.0) Mean Corpuscular Volume 98 fL (79-100) 101 fL (79-100) Mean Corpuscular Hemoglobin 36 pg (25-35) 34 pg (25-35) Mean Corpuscular Hemoglobin Concent 36 g/dL (31-37) 34 g/dL (31-37) Red Cell Distribution Width 12.5 % (11.5-14.5) 12.5 % (11.5-14.5) Platelet Count 227 x10^3/uL (140-400) 226 x10^3/uL (140-400) Neutrophils (%) (Auto) 52 % (31-73) 52 % (31-73) Lymphocytes (%) (Auto) 33 % (24-48) 34 % (24-48) Monocytes (%) (Auto) 13 % (0-9) 11 % (0-9) Eosinophils (%) (Auto) 2 % (0-3) 2 % (0-3) Basophils (%) (Auto) 1 % (0-3) 1 % (0-3) Neutrophils # (Auto) 4.4 x10^3/uL (1.8-7.7) 4.5 x10^3/uL (1.8-7.7) Lymphocytes # (Auto) 2.7 x10^3/uL (1.0-4.8) 2.9 x10^3/uL (1.0-4.8) Monocytes # (Auto) 1.1 x10^3/uL (0.0-1.1) 1.0 x10^3/uL (0.0-1.1) Eosinophils # (Auto) 0.2 x10^3/uL (0.0-0.7) 0.2 x10^3/uL (0.0-0.7) Basophils # (Auto) 0.1 x10^3/uL (0.0-0.2) 0.0 x10^3/uL (0.0-0.2) Prothrombin Time 13.0 SEC (11.7-14.0) Prothromb Time International Ratio 1.0 (0.8-1.1) Activated Partial Thromboplast Time 31 SEC (24-38) Sodium Level 129 mmol/L (136-145) 135 mmol/L (136-145) Potassium Level 3.9 mmol/L (3.5-5.1) 3.9 mmol/L (3.5-5.1) Chloride Level 93 mmol/L (98-107) 100 mmol/L (98-107) Carbon Dioxide Level 28 mmol/L (21-32) 31 mmol/L (21-32) Anion Gap 8 (6-14) 4 (6-14) Blood Urea Nitrogen 7 mg/dL (8-26) 6 mg/dL (8-26) Creatinine 0.9 mg/dL (0.7-1.3) 0.8 mg/dL (0.7-1.3) Estimated GFR (Cockcroft-Gault) 87.3 100.0 BUN/Creatinine Ratio 8 (6-20) Glucose Level 103 mg/dL (70-99) 90 mg/dL (70-99) Calcium Level 8.5 mg/dL (8.5-10.1) 8.5 mg/dL (8.5-10.1) Magnesium Level 1.7 mg/dL (1.8-2.4) Total Bilirubin 0.3 mg/dL (0.2-1.0) Aspartate Amino Transf (AST/SGOT) 26 U/L (15-37) Alanine Aminotransferase (ALT/SGPT) 26 U/L (16-63) Alkaline Phosphatase 71 U/L (46-116) Troponin I Quantitative < 0.017 ng/mL (0.000-0.055) Total Protein 6.5 g/dL (6.4-8.2) Albumin 3.3 g/dL (3.4-5.0) Albumin/Globulin Ratio 1.0 (1.0-1.7) Thyroid Stimulating Hormone (TSH) 0.354 uIU/mL (0.358-3.74) Urine Collection Type Unknown Urine Color Yellow Urine Clarity Cloudy Urine pH 6.5 (<5.0-8.0) Urine Specific [place] <=1.005 (1.000-1.030) Urine Protein Negative mg/dL (NEG-TRACE) Urine Glucose (UA) Negative mg/dL (NEG) Urine Ketones (Stick) Negative mg/dL (NEG) Urine Blood Negative (NEG) Urine Nitrite Negative (NEG) Urine Bilirubin Negative (NEG) Urine Urobilinogen Dipstick 0.2 mg/dL (0.2 mg/dL) Urine Leukocyte Esterase Large (NEG) Urine RBC 11-20 /HPF (0-2) Urine WBC Tntc /HPF (0-4) Urine Bacteria Moderate /HPF (0-FEW) Vitamin B12 Level 1027 pg/mL (247-911) 25-Hydroxy Vitamin D Total 59.8 ng/mL (30-100) Microbiology 08/02/19 Urine Culture - Final, Complete Medications Current Medications Sodium Chloride 1,000 ml @ 1,000 mls/hr Q1H IV Last administered on 08/02/19at 19:08; Start 08/02/19 at 18:36; Stop 08/02/19 at 19:35; Status DC Iohexol (Omnipaque 300 Mg/ml) 75 ml 1X ONCE IV Last administered on 08/02/19at 20:19; Start 08/02/19 at 20:00; Stop 08/02/19 at 20:01; Status DC Info (CONTRAST GIVEN -- Rx MONITORING) 1 each PRN DAILY PRN MC SEE COMMENTS; Start 08/02/19 at 20:00; Stop 08/04/19 at 19:59 Aspirin (Collins Aspirin) 325 mg 1X ONCE PO Last administered on 08/02/19at 21:11; Start 08/02/19 at 21:15; Stop 08/02/19 at 21:16; Status DC Diphenhydramine HCl (Benadryl) 50 mg PRN QHS PRN PO INSOMNIA Last administered on 08/03/19at 00:15; Start 08/02/19 at 21:45; Stop 08/03/19 at 21:39; Status DC Gabapentin (Neurontin) 900 mg TID PO ; Start 08/03/19 at 09:00; Stop 08/02/19 at 22:13; Status DC Loperamide HCl (Imodium) 2 mg PRN Q15MIN PRN PO DIARRHEA; Start 08/02/19 at 21:45 Polyethylene Glycol (miraLAX PACKET) 17 gm PRN DAILY PRN PO CONSTIPATION Last administered on 08/03/19at 10:02; Start 08/03/19 at 09:00 Propranolol HCl (Inderal) 40 mg BID PO Last administered on 08/03/19at 10:01; Start 08/03/19 at 09:00; Stop 08/03/19 at 21:39; Status DC Albuterol Sulfate (Ventolin Neb Soln) 2.5 mg RTQID NEB Last administered on 08/04/19at 07:42; Start 08/03/19 at 08:00 Olanzapine (ZyPREXA) 15 mg DAILY PO Last administered on 08/03/19at 09:53; Start 08/03/19 at 09:00; Stop 08/03/19 at 21:39; Status DC Pantoprazole Sodium (Protonix) 40 mg DAILYAC PO Last administered on 08/04/19at 09:08; Start 08/03/19 at 07:30 Non-Formulary Medication (Ramelteon (Rozerem)) 8 mg PRN QHS PRN PO INSOMNIA; Start 08/02/19 at 21:45; Status UNV Venlafaxine HCl (Effexor) 50 mg TID PO ; Start 08/03/19 at 09:00; Stop 08/02/19 at 22:13; Status DC Ziprasidone (Geodon) 40 mg BID PO ; Start 08/03/19 at 09:00; Stop 08/02/19 at 22:13; Status DC Nicotine (Nicoderm Cq 21mg) 1 patch DAILY TD ; Start 08/03/19 at 09:00; Stop 08/03/19 at 00:20; Status DC Alprazolam (Xanax) 1 mg PRN Q8HRS PRN PO ANXIETY / AGITATION Last administered on 08/03/19at 00:15; Start 08/02/19 at 21:45 Budesonide (Pulmicort) 0.5 mg RTBID NEB Last administered on 08/04/19at 07:42; Start 08/03/19 at 08:00 Gabapentin (Neurontin) 900 mg TID PO Last administered on 08/03/19at 14:45; Start 08/02/19 at 22:15; Stop 08/03/19 at 21:39; Status DC Venlafaxine HCl (Effexor) 50 mg TID PO Last administered on 08/03/19at 14:44; Start 08/02/19 at 22:15; Stop 08/03/19 at 21:39; Status DC Ziprasidone (Geodon) 40 mg BID PO Last administered on 08/03/19at 09:52; Start 08/02/19 at 22:15; Stop 08/03/19 at 21:39; Status DC Nicotine (Nicoderm Cq 21mg) 1 patch PRN DAILY PRN TD SMOKING CESSATION Last administered on 08/03/19at 11:42; Start 08/03/19 at 00:30 Benztropine Mesylate (Cogentin) 1 mg BID PO Last administered on 08/04/19 09:08; Start 08/03/19 at 09:00 Diphenhydramine HCl (Benadryl) 75 mg QHS PO Last administered on 08/03/19 21:56; Start 08/03/19 at 21:45 Gabapentin (Neurontin) 900 mg HS PO Last administered on 08/03/19 21:56; Start 08/03/19 at 21:45 Olanzapine (ZyPREXA) 30 mg HS PO Last administered on 08/03/19 22:16; Start 08/03/19 at 21:45 Propranolol HCl (Inderal La) 120 mg DAILY PO Last administered on 08/04/19 09:08; Start 08/04/19 at 09:00 Ziprasidone (Geodon) 120 mg HS PO Last administered on 08/03/19 21:57; Start 08/03/19 at 22:00 Alprazolam (Xanax) 1 mg HS PO Last administered on 08/03/19 21:57; Start 08/03/19 at 22:00 Gabapentin (Neurontin) 300 mg BID@0800,1200 PO Last administered on 08/04/19 0 9:08; Start 08/04/19 at 08:00 Duloxetine HCl (Cymbalta) 60 mg DAILY PO Last administered on 08/04/19 09:08; Start 08/04/19 at 09:00 Ziprasidone (Geodon) 80 mg DAILY PO Last administered on 08/04/19 09:09; Start 08/04/19 at 09:00 Active Scripts Active [Nicotine 21MG] 1 PATCH Patch 1 Patch TD DAILY Reported Multi Vitamin Daily (Multivitamin) 1 Each Tablet 1 Each PO DAILY Thermotabs Tablet (Sodium Cl/Potassium Chloride) 1 Each Tablet 7 Tab PO DAILY Rolaids Chewable Tablet (Calcium Carb/Magnesium Hydrox) 1 Each Tab.chew 1 Each PO PRN Q2HR PRN Biotene Moisturizing Mouth (Saliva Stimulant Agents Comb.3) 44.3 Ml [place] 2 Sprays MM PRN Q2HR PRN Geodon (Ziprasidone Hcl) 40 Mg Capsule 120 Mg PO QHS Gabapentin (Gabapentin) 300 Mg Capsule 300 Mg PO 0800,1200 Cymbalta (Duloxetine Hcl) 60 Mg Capsule.dr 60 Mg PO DAILY Zyprexa (Olanzapine) 15 Mg Tablet 30 Mg PO QHS Propranolol Hcl 40 Mg Tablet 120 Mg PO DAILY Proair Hfa Inhaler (Albuterol Sulfate) 8.5 Gm Hfa.aer.ad 2 Puff IH PRN Q4-6HRS PRN 21 Days Miralax (Polyethylene Glycol 3350) 119 Gm Powder 17 Gm PO DAILY PRN dissolve in water Breo Ellipta 200-25 Mcg INH (Fluticasone/Vilanterol) 1 Each Blst.w.dev 1 Puff IH DAILY Xanax (Alprazolam) 1 Mg Tablet 3 Tab PO HS Xanax (Alprazolam) 0.25 Mg Tablet 0.25 Mg PO PRN Q6HRS PRN Benadryl (Diphenhydramine Hcl) 25 Mg Capsule 75 Mg PO QHS Rozerem (Ramelteon) 8 Mg Tablet 8 Mg PO PRN QHS PRN Omeprazole 20 Mg Capsule. 1 Cap PO DAILY Neurontin (Gabapentin) 300 Mg Capsule 900 Mg PO QHS Geodon (Ziprasidone Hcl) 40 Mg Capsule 80 Mg PO DAILY Vitals/I & O Vital Sign - Last 24 Hours 08/03/19 08/03/19 08/03/19 08/03/19 11:09 11:47 15:00 15:32 Temp 97.8 97.9 97.8 97.9 Pulse 76 70 Resp 18 18 B/P (MAP) 123/78 (93) 107/69 (82) Pulse Ox 96 100 O2 Delivery Room Air Room Air Room Air Room Air 08/03/19 08/03/19 08/03/19 08/03/19 19:00 19:48 20:15 23:00 Temp 97.9 97.8 97.9 97.8 Pulse 64 56 Resp 18 18 B/P (MAP) 142/84 (103) 111/63 (79) Pulse Ox 95 96 94 O2 Delivery Room Air Room Air Room Air Room Air 08/04/19 08/04/19 08/04/19 08/04/19 03:00 07:00 07:42 09:08 Temp 97.6 97.8 97.6 97.8 Pulse 63 78 78 Resp 18 18 B/P (MAP) 116/72 (87) 119/78 (92) 119/78 Pulse Ox 94 96 O2 Delivery Room Air Room Air Room Air Intake and Output 08/03/19 08/03/19 08/04/19 14:59 22:59 06:59 Intake Total 600 ml 500 ml 600 ml Balance 600 ml 500 ml 600 ml Justicifation of Admission Dx: Justifications for Admission: Justification of Admission Dx: Yes SUJATA AVELAR MD Aug 04, 2019 10:17
[2019-08-04 11:30] VITALS: BP 115/64
--- NOTE | 2019-08-04 13:59 | PDOC3 ---
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 neuropathic pain, on gabapentin bipolar disorder, anxiety, insomnia hx anorexia, Final Diagnosis Problems Medical Problems: (1) Left-sided weakness suspect dystonia from psychotropic agents. Status: Acute left hemiparesis to hand and arm reported but patient is able to move his hand and make a fist and seems to have appropirate strength, reports parestesias 2 days ago. Patient is right handed. 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 neuropathic pain, on gabapentin bipolar disorder, anxiety, insomnia hx anorexia, Brief Hospital Course Allergies Allergies Coded Allergies Type Severity Reaction Last Updated Verified benzocaine Allergy Severe "shuts of my breathing" 09/09/16 Yes butamben Allergy Severe "shuts of my breathing" 09/09/16 Yes tetracaine Allergy Severe "shuts of my breathing" 09/09/16 Yes oxycodone Adverse Reaction Intermediate nausea and vomiting 09/09/16 Yes propoxyphene Adverse Reaction Intermediate nausea and vomiting 09/09/16 Yes Vital Signs Vital Signs Date Time Temp Pulse Resp B/P (MAP) Pulse Ox O2 Delivery O2 Flow Rate FiO2 08/04/19 11:30 97.9 68 12 115/64 (81) 97 97.9 08/04/19 11:15 Room Air Lab Results Laboratory Tests Test 08/02/19 18:30 08/02/19 19:07 08/03/19 03:45 White Blood Count 8.4 x10^3/uL (4.0-11.0) 8.6 x10^3/uL (4.0-11.0) Red Blood Count 3.95 x10^6/uL (4.30-5.70) 4.19 x10^6/uL (4.30-5.70) Hemoglobin 14.0 g/dL (13.0-17.5) 14.3 g/dL (13.0-17.5) Hematocrit 38.8 % (39.0-53.0) 42.1 % (39.0-53.0) Mean Corpuscular Volume 98 fL (79-100) 101 fL (79-100) Mean Corpuscular Hemoglobin 36 pg (25-35) 34 pg (25-35) Mean Corpuscular Hemoglobin Concent 36 g/dL (31-37) 34 g/dL (31-37) Red Cell Distribution Width 12.5 % (11.5-14.5) 12.5 % (11.5-14.5) Platelet Count 227 x10^3/uL (140-400) 226 x10^3/uL (140-400) Neutrophils (%) (Auto) 52 % (31-73) 52 % (31-73) Lymphocytes (%) (Auto) 33 % (24-48) 34 % (24-48) Monocytes (%) (Auto) 13 % (0-9) 11 % (0-9) Eosinophils (%) (Auto) 2 % (0-3) 2 % (0-3) Basophils (%) (Auto) 1 % (0-3) 1 % (0-3) Neutrophils # (Auto) 4.4 x10^3/uL (1.8-7.7) 4.5 x10^3/uL (1.8-7.7) Lymphocytes # (Auto) 2.7 x10^3/uL (1.0-4.8) 2.9 x10^3/uL (1.0-4.8) Monocytes # (Auto) 1.1 x10^3/uL (0.0-1.1) 1.0 x10^3/uL (0.0-1.1) Eosinophils # (Auto) 0.2 x10^3/uL (0.0-0.7) 0.2 x10^3/uL (0.0-0.7) Basophils # (Auto) 0.1 x10^3/uL (0.0-0.2) 0.0 x10^3/uL (0.0-0.2) Prothrombin Time 13.0 SEC (11.7-14.0) Prothromb Time International Ratio 1.0 (0.8-1.1) Activated Partial Thromboplast Time 31 SEC (24-38) Sodium Level 129 mmol/L (136-145) 135 mmol/L (136-145) Potassium Level 3.9 mmol/L (3.5-5.1) 3.9 mmol/L (3.5-5.1) Chloride Level 93 mmol/L (98-107) 100 mmol/L (98-107) Carbon Dioxide Level 28 mmol/L (21-32) 31 mmol/L (21-32) Anion Gap 8 (6-14) 4 (6-14) Blood Urea Nitrogen 7 mg/dL (8-26) 6 mg/dL (8-26) Creatinine 0.9 mg/dL (0.7-1.3) 0.8 mg/dL (0.7-1.3) Estimated GFR (Cockcroft-Gault) 87.3 100.0 BUN/Creatinine Ratio 8 (6-20) Glucose Level 103 mg/dL (70-99) 90 mg/dL (70-99) Calcium Level 8.5 mg/dL (8.5-10.1) 8.5 mg/dL (8.5-10.1) Magnesium Level 1.7 mg/dL (1.8-2.4) Total Bilirubin 0.3 mg/dL (0.2-1.0) Aspartate Amino Transf (AST/SGOT) 26 U/L (15-37) Alanine Aminotransferase (ALT/SGPT) 26 U/L (16-63) Alkaline Phosphatase 71 U/L (46-116) Troponin I Quantitative < 0.017 ng/mL (0.000-0.055) Total Protein 6.5 g/dL (6.4-8.2) Albumin 3.3 g/dL (3.4-5.0) Albumin/Globulin Ratio 1.0 (1.0-1.7) Thyroid Stimulating Hormone (TSH) 0.354 uIU/mL (0.358-3.74) Urine Collection Type Unknown Urine Color Yellow Urine Clarity Cloudy Urine pH 6.5 (<5.0-8.0) Urine Specific [place] <=1.005 (1.000-1.030) Urine Protein Negative mg/dL (NEG-TRACE) Urine Glucose (UA) Negative mg/dL (NEG) Urine Ketones (Stick) Negative mg/dL (NEG) Urine Blood Negative (NEG) Urine Nitrite Negative (NEG) Urine Bilirubin Negative (NEG) Urine Urobilinogen Dipstick 0.2 mg/dL (0.2 mg/dL) Urine Leukocyte Esterase Large (NEG) Urine RBC 11-20 /HPF (0-2) Urine WBC Tntc /HPF (0-4) Urine Bacteria Moderate /HPF (0-FEW) Vitamin B12 Level 1027 pg/mL (247-911) 25-Hydroxy Vitamin D Total 59.8 ng/mL (30-100) Brief Hospital Course PHYSICIAN SERVICES History & Physical : [id number] Signed Patient: KENISHA ALBERTO Acct:[id number] Unit: [id number] : 1965 Loc: [address] [place] [address] Room/ Bed: [facility] Age/Sex: 54 / M ADM Status: ADM IN ADM Date: 08/02/19 History and Physical Date of Admission Date of Admission DATE: 08/02/19 TIME: 21:35 Source Source: Chart review, Patient History of Present Illness History of Present Illness Mr. Alberto, is a 54 year old male who presents with complaint of left arm numbness with [id number] sensation that started yesterday. He states that yesterday it was just in 2 of his fingers but today since this morning he has noticed that it is in his entire hand and up his arm. He also states that since he has been here, he has noticed numbness developing in the left leg. Patient denies any speech deficits. He denies headache. [] Patient with quite an uneventful hospital stay. Patient seems to have regained strength that brought him into the hospital. Consultation by neurology was greatly appreciated our marketing consultant as recommended for the patient to discuss with a psychiatrist dialing back on his neuroleptics since he may be exhibiting drug-induced dystonia on the left upper extremity. There seems to be also a component of psychogenic elements in his symptoms. Reassurance was provided patient is in good spirits to be discharged home and he will follow-up with psychiatrist shortly Assessment Assessment PHYSICAL EXAM Alert. Oriented to time, place and person. PERRL. EOMI. CN: no focal findings. Muscle tone: normal. Muscle strength: 5/5, dystonic posturing of the left upper extremity now with no tremor, with left dysdiadochokinesia DTR: 2+ Plantar reflex: flexor Gait: normal. Sensory exam: no abnormal findings. No cerebellar signs elicited. Discharge Information Condition at Discharge: Improved Follow Up: Weeks Disposition/Orders: D/C to Home Scheduled Alprazolam (Xanax) 1 Mg Tablet, 3 TAB PO HS, (Reported) Entered as Reported by: RYAN SHEEHAN MD on 09/18/16 1557 Last Taken: Unknown Dose on 08/01/192199 Last Action: Continued on 08/03/192142 by REX KRAUSE Diphenhydramine Hcl (Benadryl) 25 Mg Capsule, 75 MG PO QHS for sleep, (Reported) Entered as Reported by: RU CARTER on 09/17/16 0430 Last Taken: Unknown Dose on 08/01/191999 Last Action: Edited on 08/02/192299 by REX KRAUSE Duloxetine Hcl (Cymbalta) 60 Mg Capsule.dr, 60 MG PO DAILY for mood, (Reported) Entered as Reported by: REX KRAUSE on 08/02/192299 Last Action: Converted on 08/03/192142 by REX KRAUSE Fluticasone/Vilanterol (Breo Ellipta 200-25 Mcg INH) 1 Each Blst.w.dev, 1 PUFF IH DAILY for soa, (Reported) Entered as Reported by: NAKUL MATAMOROS on 08/02/192102 Last Action: Reviewed on 08/02/192299 by REX KRAUSE Gabapentin (Neurontin ) 300 Mg Capsule, 900 MG PO QHS for neuropathy, (Reported) Entered as Reported by: OBIE SUAREZ on 09/09/16 1018 Last Taken: Unknown Dose on 08/02/19 1200 Last Action: Edited on 08/02/192299 by REX KRAUSE Gabapentin (Gabapentin ) 300 Mg Capsule, 300 MG PO 0800,1200 for NEUROGENIC PAIN, (Reported) Entered as Reported by: REX KRAUSE on 08/02/192299 Last Action: Continued on 08/03/192142 by REX KRAUSE Multivitamin (Multi Vitamin Daily) 1 Each Tablet, 1 EACH PO DAILY for supplement, (Reported) Entered as Reported by: REX KRAUSE on 08/02/192299 Last Action: New Order on 08/02/192299 by REX KRAUSE Olanzapine (Zyprexa) 15 Mg Tablet, 30 MG PO QHS for sleep, (Reported) Entered as Reported by: NAKUL MATAMOROS on 08/02/192107 Last Action: Edited on 08/02/192299 by REX KRAUSE Omeprazole (Omeprazole) 20 Mg Capsule.dr, 1 CAP PO DAILY, #30 Ref 5 (Reported) Entered as Reported by: OBIE SUAREZ on 09/09/161017 Last Taken: Unknown Dose on 08/02/19 0800 Last Action: Reviewed on 08/02/192299 by REX KRAUSE Propranolol Hcl (Propranolol Hcl) 40 Mg Tablet, 120 MG PO DAILY for ., #60 Ref 2 (Reported) Entered as Reported by: NAKUL MATAMOROS on 08/02/192107 Last Taken: Unknown Dose on 08/01/191999 Last Action: Edited on 08/02/192299 by REX KRAUSE Sodium Cl/Potassium Chloride (Thermotabs Tablet) 1 Each Tablet, 7 TAB PO DAILY for unknown, (Reported) Entered as Reported by: REX KRAUSE on 08/02/192299 Last Action: New Order on 08/02/192299 by REX KRAUSE Ziprasidone Hcl (Geodon) 40 Mg Capsule, 80 MG PO DAILY for mood, #60 Ref 1 (Reported) Entered as Reported by: OBIE SUAREZ on 09/09/161017 Last Taken: Unknown Dose on 08/01/191999 Last Action: Edited on 08/02/192299 by REX KRAUSE Ziprasidone Hcl (Geodon) 40 Mg Capsule, 120 MG PO QHS for mood, (Reported) Entered as Reported by: REX KRAUSE on 08/02/192299 Last Action: New Order on 08/02/192299 by REX KRAUSE [Nicotine 21MG] 1 PATCH PATCH, 1 PATCH TD DAILY, #30 Prescribed by: RYAN SHEEHAN MD on 09/18/16 1511 Last Action: Converted on 08/02/192139 by FINA REYNOLDS Scheduled PRN Albuterol Sulfate (Proair Hfa Inhaler) 8.5 Gm Hfa.aer.ad, 2 PUFF IH PRN Q4-6HRS PRN for wheezing for 21 Days, #1 Ref 0 (Reported) Entered as Reported by: NAKUL MATAMOROS on 08/02/192107 Last Action: Reviewed on 08/02/192299 by REX KRAUSE Alprazolam (Xanax) 0.25 Mg Tablet, 0.25 MG PO PRN Q6HRS PRN for ANXIETY / AGITATION, Ref 0 (Reported) Entered as Reported by: RYAN SHEEHAN MD on 09/18/16 1557 Last Action: Reviewed on 08/02/192299 by REX KRAUSE Calcium Carb/Magnesium Hydrox (Rolaids Chewable Tablet) 1 Each Tab.chew, 1 EACH PO PRN Q2HR PRN for INDIGESTION, (Reported) Entered as Reported by: REX KRAUSE on 08/02/192299 Last Action: New Order on 08/02/192299 by REX KRAUSE Polyethylene Glycol 3350 (Miralax) 119 Gm Powder, 17 GM PO DAILY PRN for CONSTIPATION, #255 Ref 0 (Reported) dissolve in water Entered as Reported by: NAKUL MATAMOROS on 08/02/192102 Last Action: Reviewed on 08/02/192299 by REX KRAUSE Ramelteon (Rozerem) 8 Mg Tablet, 8 MG PO PRN QHS PRN for INSOMNIA, (Reported) Entered as Reported by: RU CARTER on 09/17/16 0430 Last Taken: Unknown Dose on 08/01/191999 Last Action: Reviewed on 08/02/192299 by REX KRAUSE Saliva Stimulant Agents Comb.3 (Biotene Moisturizing Mouth) 44.3 Ml [place], 2 SPRAYS MM PRN Q2HR PRN for DRY MOUTH, (Reported) Entered as Reported by: REX KRAUSE on 08/02/192299 Last Action: New Order on 08/02/192299 by REX KRAUSE Justicifation of Admission Dx: Justifications for Admission: Justification of Admission Dx: Yes KINJAL WINN MD Aug 04, 2019 13:59
--- NOTE | 2019-08-04 14:19 | NUR ---
SW following. Pt to discharge today, 08/04/2019 to home with spouse. Reviewed chart and spoke with RN. No further SW needs at this time.
[2019-08-04 15:00] VITALS: BP 99/75
--- NOTE | 2019-08-04 15:30 | NUR ---
DISCHARGE INSTRUCTIONS GIVEN, QUESTIONS AND CONCERNS ANSWERED, PATIENT VERBALIZED UNDERSTANDING OF DISCHARGE INFORMATION INCLUDING TAKING ALL MEDICATIONS INSTRUCTED AND FOLLOWING UP WITH HIS PRIMARY PROVIDER IN 1-[address] HAGAN IN 4-8 WEEKS, HIS OFFICE WILL NOTIFY YOU WITHIN 2 WEEKS. PATIENT DID NOT RECEIVE THE MRI OF THE BRAIN ORDERED ON THIS ADMISSION DUE TO MACHINE DOWN AT THIS TIME. SALINE LOCK REMOVED FROM PATIENTS RIGHT WRIST AREA PRIOR TO DISCHARGE.
--- NOTE | 2019-08-04 16:00 | NUR ---
PATIENT LEAVES THE UNIT PER W/C AND ACCOMPANIED BY HIS SPOUSE AND THIS SOFT SUGAR CUTTER, EMOTIONAL SUPPORT GIVEN, FOLLOW UP APPOINTMENTS ENCOURAGED.
== END 2019-08-04 16:00 | disposition home or self-care (01) | DRG 92 ==
LOC: ER 18:17 → 6 SOUTH 20:41
PROVIDERS: ADMIT Internal Medicine; ATTEND Internal Medicine
DX: G24.09 Other drug induced dystonia (principal); G81.94 Hemiplegia, unspecified affecting left nondominant side; Y92.89 Other specified places as the place of occurrence of the external cause; E78.5 Hyperlipidemia, unspecified; F17.210 Nicotine dependence, cigarettes, uncomplicated; F31.9 Bipolar disorder, unspecified; F41.9 Anxiety disorder, unspecified; G47.00 Insomnia, unspecified; I10 Essential (primary) hypertension; T43.95XA Adverse effect of unspecified psychotropic drug, initial encounter; J44.9 Chronic obstructive pulmonary disease, unspecified; K22.70 Barrett's esophagus without dysplasia; K21.9 Gastro-esophageal reflux disease without esophagitis; Z87.01 Personal history of pneumonia (recurrent); Z88.8 Allergy status to other drugs, medicaments and biological substances; Z79.899 Other long term (current) drug therapy
CPT/HCPCS: 36415; 70450; 70496; 70498; 80048; 80053; 81001; 82306; 82607; 83735; 84443; 84484; 85025; 85610; 85730; 87086; 93005; 94640; 94760; 96360; 99285; J7030; Q9967; G0378; J7613; J7626; Q0163

== ENCOUNTER → 2019-08-13 | Outpatient (CLI) | payer BC, MEDICARE ==
[2019-08-04 15:00] VITALS: BP 99/75
[~2019-08-13] MED LIST changes: +ALBU2.5V8 IH; +BREO ELLIPTA 21 EACH IH; +CALC-515 PO; +DULO60CA6 PO; +MULT-245 PO; +OLAN15TA3 PO; +POLY119P4 PO; +PROP40TA PO; +SALI44.3 MM; +SODI1TAB15 PO
--- NOTE | 2019-08-13 11:48 | KCIC ---
BRAIN W/O CONTRAST Date: 08/13/2019 10:15 AM Indication: DYSTONIA , Pt states poss TIA 08/02/19. Left arm weakness and pain, some numbness. Comparison: CT 08/02/2019. Technique: Multiplanar multisequence MRI of the brain was performed without intravenous contrast using the standard protocol. Findings: No acute infarct. No acute or chronic hemorrhage. The ventricles are normal in size and configuration without hydrocephalus. The scalp and calvarium are normal. The pituitary and sella are normal. No Chiari malformation. The visualized upper cervical spine is normal. The visualized orbits and globes are normal. The visualized paranasal sinuses are clear. The mastoid air cells are clear. Normal flow voids within the vertebral, basilar, and internal carotid arteries indicating patency. IMPRESSION: No acute infarct, hemorrhage, mass, or hydrocephalus. Electronically signed by: Dann Fofana MD (08/13/2019 11:45 AM) [id number]
== END | disposition home or self-care (01) ==
LOC: KCIC MRI 09:48
PROVIDERS: ATTEND Psychiatry & Neurology Neurology with Special Qualifications in Child Neurology
DX: R53.1 Weakness (principal); G24.9 Dystonia, unspecified; R20.0 Anesthesia of skin
CPT/HCPCS: 70551